=== PATIENT | female | born 2000 | race Caucasian/White ===

== ENCOUNTER 2022-12-11 13:30 | Outpatient (OUT) | payer BC, SELFPAY ==
--- NOTE | 2022-12-11 13:44 | MR_ITS ---
The [address] [address] Patient Name: TRUDY TUBBS MRN: [id number] date: 2000 Sex: F Assigned Patient Location: MRI Current Patient Location: MRI Accession/Order Number: [id number] Exam Date: 12/11/2022 13:55 Report Date: 12/12/2022 09:25 At the request of: ARVIND ZAVALETA Procedure: MR head/brain wo/w con EXAM: MR head/brain wo/w con CLINICAL INDICATION: Seizure R56.9 COMPARISON: None TECHNIQUE/PROTOCOL: Standard pre and postcontrast protocol brain MRI performed (Sagittal T1 with axial T1, T2, GRE, FLAIR, and diffusion-weighted imaging). CONTRAST: 13 mL of Dotarem. FINDINGS: No restricted diffusion, extra-axial fluid collection, hydrocephalus, midline shift, or other mass effect. Intracranial flow voids are maintained. Normal midline structures. No abnormal parenchymal, leptomeningeal, or dural enhancement. Incidental left cerebellar developmental venous anomaly. No discrete cortical malformation. No coronal T2 or FLAIR images were obtained. Normal marrow signal. No soft tissue abnormalities. Trace scattered paranasal sinus mucosal thickening. Mastoid air cells are well-aerated. IMPRESSION: 1. No acute intracranial process or abnormal enhancement. 2. Hippocampal formations cannot be well evaluated as no coronal T2 or FLAIR images were obtained. If there is persistent clinical concern for a structural anomaly, consider seizure protocol MRI. Electronically authenticated by: ATILIO MEJIAS Date: 12/12/2022 09:25
== END 2022-12-11 13:31 ==
PROVIDERS: PCP Family Medicine; Visit Provider Psychiatry & Neurology Neurology
DX: R56.9 Unspecified convulsions (principal)
CPT/HCPCS: 70553; A9575

== ENCOUNTER 2023-01-13 13:57 | Emergency (ER) | payer BC, SELFPAY ==
[2023-01-13 14:03] VITALS: BP 136/86; PULSE 88; RESP 22; TEMP 37.6; O2SAT 97; BMI 20.7
[2023-01-13 14:04] VITALS: BP 165/121; O2SAT 97
[2023-01-13 14:05] VITALS: BP 136/86; PULSE 100; PULSE 98; RESP 15; RESP 20; O2SAT 99
[2023-01-13 14:10] VITALS: PULSE 100
--- NOTE | 2023-01-13 14:49 | ED_ITS ---
HPI - Chest Pain General Chief Complaint: Chest Pain Stated Complaint: CHEST PAIN Time Seen by Provider: 01/13/23 14:49 Source: patient and family Mode of arrival: Wheelchair Limitations: no limitations History of Present Illness HPI narrative: Patient presents to emergency department complaining of chest pain, and palpitations. Patient states she had a cough which is nonproductive. She is also having Generalized weakness. Denies any fever, chills. She has a history of asthma but has not had the need to use her inhalers. She has not been taking any steroids. She states in the last month they have increased her thyroid medication from 200 ?g to 250 ?g she has been taking. She has a history of anxiety but this does not feel like an anxiety problem she had before. She denies any lower extremity edema, or cramping. She denies any shortness of breath. Denies any sore throat, runny nose. Denies any flank pain, hematuria, dysuria. She denies any nausea, vomiting, diarrhea, constipation or abdominal pain. Related Data Home Medications Medication Instructions Recorded Confirmed levothyroxine 200 mcg tablet 200 mcg PO DAILY 01/13/23 01/13/23 (Euthyrox) mometasone-formoterol HFA 50 mcg-5 2 inh inhalation QID 01/13/23 01/13/23 mcg/actuation aerosol inhaler (Dulera) Previous Rx's Medication Instructions Recorded cyclobenzaprine 5 mg tablet 5 mg PO TID PRN muscle spasm #10 01/13/23 tabs Allergies Allergy/AdvReac Type Severity Reaction Status Date / Time No Known Drug Allergies Allergy Verified 01/13/23 14:06 Review of Systems ROS Status of ROS 10 or more systems reviewed and unremarkable except as noted in history and below [facility] Social History Smoking status: Current some day smoker Exam Narrative Exam Narrative: Nurses notes and vital signs reviewed and patient is not hypoxic. General: Nontoxic, Well-appearing and in no apparent distress. Skin: Warm, dry, no pallor noted. No Rash Head: Normocephalic, atraumatic. Neck: Supple, non-tender. Eye: Pupils are equal, round and EOMI. No scleral icterus. Ears, Nose, Mouth, and Throat: TM clear, no posterior oropharynx erythema or nasal mucosal hypertrophy, uvula is mid-line Oral mucosa is moist Cardiovascular: Regular Rate and Rhythm without murmur, gallop or rub. Respiratory: No accessory muscle use or respiratory distress. Lungs are clear to auscultation, no wheezing, rales or rhonchi Chest Wall: no tenderness Back: No midline thoracic or lumbar vertebral tenderness. No CVA tenderness Musculoskeletal: normal ROM, no calf or popliteal tenderness, no lower extremity edema/swelling GI: Abdomen is soft, non-distended. Normal bowel sounds. No masses appreciated. No tenderness to palpation. No rebound, guarding, or rigidity noted. Neurological: A&O x4. No cranial nerve dysfunction observed. No truncal ataxia. Moves all extremities. Sensation intact. Psychiatric: Cooperative and interactive. anxious. Constitutional Vital Signs, click to edit/add: Last Vital Signs Temp 99.7 F H 01/13/23 14:03 Pulse 79 01/13/23 16:45 Resp 30 H 01/13/23 16:45 BP 137/78 H 01/13/23 16:45 Pulse Ox 97 01/13/23 16:45 O2 Del Method Room Air 01/13/23 14:03 Course Vital Signs Vital signs: Vital Signs Temperature 99.7 F H 01/13/23 14:03 Pulse Rate 88 01/13/23 14:03 Respiratory Rate 22 01/13/23 14:03 Blood Pressure 136/86 H 01/13/23 14:03 Pulse Oximetry 97 01/13/23 14:03 Oxygen Delivery Method Room Air 01/13/23 14:03 Temperature 99.7 F H 01/13/23 14:03 Pulse Rate 79 01/13/23 16:45 Respiratory Rate 30 H 01/13/23 16:45 Blood Pressure 137/78 H 01/13/23 16:45 Pulse Oximetry 97 01/13/23 16:45 Oxygen Delivery Method Room Air 01/13/23 14:03 MDM - Chest Pain MDM Narrative Medical decision making narrative: Patient was given IV fluids, Toradol, and Benadryl. She felt better state the pain was only about a 1 and was on the right side. Patient states she was little bit sleepy but had much improved. All results were discussed with patient. Lab studies other than the d-dimer are unremarkable. CT of the chest was negative for pulmonary embolism. Patient does not have any lower extremity edema, or cramping. Patient will be started on Flexeril. She is advised follow-up with primary care doctor. At this time the patient is without objective evidence of an acute process requiring hospitalization or inpatient management. The patient has remained hemodynamically stable. No additional indication for emergent studies at this time. I answered all questions. Discussed discharge instructions including standard anticipatory guidance and what should prompt a return to the emergency department, including if they get worse are not getting better or develops any new or concerning symptoms. I've given them specific time frame in which to follow-up, and who to follow-up with. The patient demonstrates understanding. Patient is nontoxic and stable for discharge with outpatient follow-up. This note was created with the assistance of a speech recognition program. Although the intention is to generate documents that actually reflects the content of the visit, no guarantees can be provided that every mistake has been identified and corrected by editing. Differential Diagnosis Differential diagnosis: Likely pneumothorax, st elevation myocardial infarction, costochondritis and chest pain Lab Data Attestation: I reviewed the patient's lab results. Labs: Lab Results 01/13/23 Range/Units 15:14 WBC 4.9 (4.0-11.0) 10^3/uL RBC 4.14 L (4.20-5.40) 10^6/uL Hgb 13.6 (12.0-16.0) g/dL Hct 38.1 (36.0-48.0) % MCV 92.0 (81.0-99.0) fL MCH 32.9 (26.7-34.0) pg MCHC 35.7 H (29.9-35.2) g/dL RDW 11.8 (11.0-15.0) % Plt Count 192 (150-450) 10^3/uL MPV 10.0 (9.5-13.5) fL Neut % (Auto) 50.5 (43.0-75.0) % Lymph % (Auto) 31.1 (20.5-60.0) % Josephine % (Auto) 11.1 (1.7-12.0) % Eos % (Auto) 5.9 (0.9-7.0) % Baso % (Auto) 1.0 (0.2-2.0) % Neut # (Auto) 2.5 (1.4-6.5) 10^3/uL Lymph # (Auto) 1.5 (1.2-3.8) 10^3/uL Josephine # (Auto) 0.5 (0.3-0.8) 10^3/uL Eos # (Auto) 0.3 (0.0-0.7) 10^3/uL Baso # (Auto) 0.1 (0.0-0.1) 10^3/uL Abs Immat Gran (auto) 0.02 (0.00-0.03) 10^3/uL Imm/Tot Granulo (auto) 0.4 (0.0-0.5) % PT 9.9 (9.0-11.6) sec INR 0.93 APTT 29.3 (22.3-36.2) sec D-Dimer 0.76 H* (<=0.59) mg/L FEU Sodium 137 (136-145) mmol/L Potassium 3.8 (3.5-5.1) mmol/L Chloride 103 (98-107) mmol/L Carbon Dioxide 27.6 (21.0-32.0) mmol/L Anion Gap 10.2 BUN 8.0 (7.0-18.0) mg/dL Creatinine 0.83 (0.55-1.02) mg/dL Est GFR ( Amer) >60 (>=60) Est GFR (Non-Af Amer) >60 (>=60) BUN/Creatinine Ratio 9.6 Glucose 102 (74-106) mg/dL Calcium 9.3 (8.5-10.1) mg/dL Total Bilirubin 0.4 (0.2-1.0) mg/dL AST 20 (15-37) U/L ALT 29 (14-59) U/L Alkaline Phosphatase 91 (46-116) U/L Total Protein 7.4 (6.4-8.2) g/dL Albumin 4.2 (3.4-5.0) g/dL Globulin 3.2 g/dL Albumin/Globulin Ratio 1.3 TSH 7.777 H (0.358-3.740) uIU/mL Thyroxine (T4) 6.80 (4.80-13.90) ug/dL Serum HCG, Qual Negative (NEGATIVE) ECG Data Attestation: I personally reviewed and interpreted this ECG as follows: Interpretation: Sinus rhythm 87 bpm. No acute ischemic changes. Normal axis Heart Score History: Slightly/Non-Suspicious ECG: Normal Age: <45 years Risk Factors: No Risk Factors Troponin: <Normal Limit Total Heart Score Recommendations & Risks:: 0 Discharge Plan Discharge Chief Complaint: Chest Pain Clinical Impression: Chest pain, Pleurisy Patient Disposition: Home, Self-Care Time of Disposition Decision: 17:49 Condition: Good Mode of Transportation: Private Vehicle Prescriptions / Home Meds: New cyclobenzaprine 5 mg tablet 5 mg PO TID PRN (Reason: muscle spasm) Qty: 10 0RF No Action levothyroxine [Euthyrox] 200 mcg tablet 200 mcg PO DAILY Dulera 50-5 mcg/actuation HFA aerosol inhaler 2 inh inhalation QID Instructions: Chest Pain (ED), Pleurisy (ED) Stand Alone Forms: Portal Instructions Referrals: RITIKA DOBSON [Primary Care Provider] - 1 week
--- NOTE | 2023-01-13 14:58 | ECG_ITS ---
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
--- NOTE | 2023-01-13 14:58 | XR_ITS ---
The [address] [address] Patient Name: TRUDY TUBBS MRN: [id number] date: 2000 Sex: F Assigned Patient Location: ER Current Patient Location: ER Accession/Order Number: [id number] Exam Date: 01/13/2023 15:32 Report Date: 01/13/2023 15:50 At the request of: ALDO ARANDA Procedure: XR chest 1V XR chest 1V CLINICAL HISTORY: Chest pain. COMPARISON: None Available. TECHNIQUE: Single AP portable upright view of the chest. FINDINGS: The lungs are hyperexpanded and clear. No pleural effusion or pneumothorax. Cardiomediastinal silhouette size is normal. No acute bony process. XR/XR chest 1V IMPRESSION: No acute cardiopulmonary process. Electronically authenticated by: RADHA MOULTON Date: 01/13/2023 15:50
[2023-01-13] MEDS: 0.9 % SODIUM CHLORIDE 1,000 ML 999 ML IV (15:15)
[2023-01-13 15:28] LABS: Basophils Absolute Auto 0.1 10^3/uL (0.0-0.1); Eosinophils Absolute Auto 0.3 10^3/uL (0.0-0.7); Eosinophils Percent Auto 5.9 % (0.9-7.0); Hematocrit 38.1 % (36.0-48.0); Hemoglobin 13.6 g/dL (12.0-16.0); Immature Granulocytes Abs Auto 0.02 10^3/uL (0.00-0.03); Immature Granulocytes Pct Auto 0.4 % (0.0-0.5); Lymphocytes Absolute Auto 1.5 10^3/uL (1.2-3.8); Lymphocytes Percent Auto 31.1 % (20.5-60.0); Mean Corpuscular HGB Conc 35.7 g/dL (29.9-35.2); Mean Corpuscular Hemoglobin 32.9 pg (26.7-34.0); Monocytes Absolute Auto 0.5 10^3/uL (0.3-0.8); Monocytes Percent Auto 11.1 % (1.7-12.0); Neutrophils Absolute Auto 2.5 10^3/uL (1.4-6.5); Neutrophils Percent Auto 50.5 % (43.0-75.0); Platelet Count 192 10^3/uL (150-450); Red Blood Count 4.14 10^6/uL (4.20-5.40); Red Cell Distribution Width 11.8 % (11.0-15.0); White Blood Count 4.9 10^3/uL (4.0-11.0)
[2023-01-13 15:44] LABS: Alanine Aminotransferase 29 U/L (14-59); Albumin Globulin Ratio 1.3; Albumin Level 4.2 g/dL (3.4-5.0); Alkaline Phosphatase 91 U/L (46-116); Anion Gap 10.2; Aspartate Amino Transferase 20 U/L (15-37); BUN Creatinine Ratio 9.6; Bilirubin Total 0.4 mg/dL (0.2-1.0); Calcium 9.3 mg/dL (8.5-10.1); Carbon Dioxide 27.6 mmol/L (21.0-32.0); Chloride 103 mmol/L (98-107); Estimated GFR (African America >60 (>=60); Estimated GFR (Non-African Ame >60 (>=60); Globulin 3.2 g/dL; Glucose 102 mg/dL (74-106); Potassium 3.8 mmol/L (3.5-5.1); Sodium 137 mmol/L (136-145); Total Protein 7.4 g/dL (6.4-8.2)
[2023-01-13 15:52] LABS: INR 0.93; Partial Thromboplastin Time 29.3 sec (22.3-36.2); Prothrombin Time 9.9 sec (9.0-11.6); Thyroid Stimulating Hormone 7.777 uIU/mL (0.358-3.740)
[2023-01-13 15:56] LABS: D Dimer 0.76 mg/L FEU (<=0.59)
--- NOTE | 2023-01-13 16:02 | CT_ITS ---
The [address] [address] Patient Name: TRUDY TUBBS MRN: [id number] date: 2000 Sex: F Assigned Patient Location: ED.MAIN Current Patient Location: ED.MAIN Accession/Order Number: [id number] Exam Date: 01/13/2023 16:30 Report Date: 01/13/2023 17:33 At the request of: ALDO ARANDA Procedure: CT angio chest EXAM: CTA chest. CLINICAL SYMPTOMS: Female, 22 years, cp. COMPARISONS: Chest radiograph, same date. TECHNIQUE: Helical CTA of the pulmonary arteries was performed following rapid injection of intravenous contrast with coronal and sagittal MIP images following the administration of 100 mL Omnipaque 350 IV contrast. Dose reduction techniques were achieved by using automated exposure control and/or adjustment of mA and/or KVP according to patient size and/or use of iterative reconstruction technique. CTA: There are no filling defects identified in the pulmonary arteries to suggest pulmonary embolism. There is no thoracic aortic dissection or aneurysm identified. The thoracic aorta is normal. CT CHEST: The lung parenchyma is normal. There is no pleural effusion. No mediastinal or hilar adenopathy. Heart size is normal. The visualized portion of the abdomen is unremarkable. CT/CT angio chest IMPRESSION: No evidence for pulmonary embolism or aortic dissection. The lungs are clear. Electronically authenticated by: RAQUEL VIVAS Date: 01/13/2023 17:33
[2023-01-13] MEDS: KETOROLAC TROMETHAMINE 30 MG/ML VIAL IVP (16:16)
[2023-01-13] MEDS: DIPHENHYDRAMINE HCL 50 MG/ML (1ML) VIAL 25 MG IV (16:16)
[2023-01-13 16:33] LABS: HCG Qualitative NEGATIVE (NEGATIVE)
[2023-01-13 16:45] VITALS: BP 137/78; PULSE 79; PULSE 90; RESP 22; RESP 30; O2SAT 97; O2SAT 98
== END 2023-01-13 18:15 | disposition home or self-care (01) ==
PROVIDERS: Emergency Provider Emergency Medicine; PCP Family Medicine
DX: R07.9 Chest pain, unspecified (principal); R09.1 Pleurisy; J45.909 Unspecified asthma, uncomplicated; F17.210 Nicotine dependence, cigarettes, uncomplicated; Z79.890 Hormone replacement therapy; Z79.899 Other long term (current) drug therapy
CPT/HCPCS: 36415; 71045; 71275; 80053; 84436; 84443; 84703; 85025; 85378; 85610; 85730; 93005; 96374; 96375; 99285; Q9967

== ENCOUNTER 2023-04-23 12:33 | Outpatient (OUT) | payer BC, SELFPAY ==
--- NOTE | 2023-04-23 13:20 | CA_ITS ---
Patient: TRUDY TUBBS Exam Date: 04/23/2023 : 2000 Gender:F Ordering : ESTEPHANIA BILLS M.D. Admission #: [id number] Family : Order #: [id number] CLICK HERE TO VIEW EXAM ECHOCARDIOGRAM REPORT PROCEDURE: CA ECHO DOPPLER COMPLETE INDICATIONS: SYNCOPE COMPARISON: None. DESCRIPTION: COMPLETE ECHOCARDIOGRAM Real-time transthoracic echocardiography with 2D, M-mode, spectral and color flow Doppler performed. QUALITY: Technical quality was good. LEFT VENTRICLE: Normal chamber size. Normal left ventricular wall thickness. Normal systolic function. LV EF: Normal left ventricular ejection fraction, (>55%). DIASTOLIC: Normal diastolic function. ATRIAL SEPTUM: LEFT ATRIUM: Normal chamber size. RIGHT ATRIUM: Normal chamber size. RIGHT VENTRICLE: Normal chamber size. Normal right ventricular systolic function. TRICUSPID VALVE: Normal mobility and thickness. No stenosis with no regurgitation. MITRAL VALVE: Normal mobility and thickness. No mitral valve prolapse. No evidence of mitral valve stenosis. There is no mitral annular calcification. No mitral regurgitation. AORTIC VALVE: Normal trileaflet appearance. No visible sclerosis. Normal leaflet mobility. No evidence of aortic valve stenosis. No aortic regurgitation. AORTIC ROOT: Normal diameter and appearance. PULMONIC VALVE: Normal thickness and mobility. No stenosis. Trivial regurgitation. PERICARDIUM: No evidence of pericardial effusion. IVC: Collapses with inspirations. PLEURA: CONCLUSION: 1. Normal study. Adult Echocardiography Procedure Report Left Ventricle LVEDD (3.7 - 5.6 cm): 3.30 cm LVESD (2.2 - 4.0 cm): 2.21 cm LVIVS thickness (0.6 - 1.2 cm): 0.59 cm LVPW thickness (0.5 - 1.0 cm): 0.69 cm e': 0.16 m/s E - e': 5.45 LVOT Max Gradient: 3.46 mm[Hg], 3.12 mm[Hg] LVOT Area (cm2): 0.91 m/s Peak Velocity (LVOT): 0.93 m/s, 0.88 m/s Mean Velocity (LVOT): 0.65 m/s LVOT Diameter 1.94 cm Left Atrium LA Volume Index (2D A2C): 17.17 ml/m2 Left Atrium Systolic Dimension: 2.27 cm Mitral Valve MV E to A Ratio: 1.72 Mitral Valve A-Wave Peak Velocity: 0.52 m/s Mitral Valve E-Wave Peak Velocity: 0.90 m/s Right Ventricle Aorta AO Root Diam: 2.78 cm Ascending Ao Diam: 2.20 cm Aortic Valve AoV Area (Peak [place]): 2.40 cm2, 2.47 cm2 Peak Velocity(Antegrade Flow): 1.12 m/s Peak Gradient(Antegrade Flow): 4.99 mm[Hg] Tricuspid Valve Pulmonic Valve Peak Velocity: 1.15 m/s Peak Gradient: 5.77 mm[Hg], 4.87 mm[Hg] Right Atrium Right Atrium Systolic Pressure: 12.83 ml, 12.83 ml Dictated by: Dimas Gant M.D. on 04/23/2023 at 17:15 Approved by: Dimas Gant M.D. on 04/23/2023 at 17:16
--- NOTE | 2023-04-23 13:20 | CA_ITS ---
The [facility] Test Date: 2023-05-06 Pat Name: TRUDY TUBBS Department: Room: - Gender: Female [employer]: : 2000 Requested By: [id number] Order Number: [id number] Reading MD: ASHISH CARRANZA Interpretive Statements Predominant rhythm is sinus with average rate of 93 bpm Tachycardia - max rate of 147 bpm Bradycardia - none Ventricular ectopy - < 1% total Impression: Predominant rhythm is sinus with average rate of 93 bpm Fastest rate of 147 bpm and slowest rate of 63 bpm < 1% ventricular ectopy Patient triggered events associated with sinus tachycardia w/ rates of 115 and 126 bpm Electronically Signed On 05-06-2023 20:36:16 EST by ASHISH CARRANZA
== END 2023-04-23 12:34 | disposition home or self-care (01) ==
LOC: CARD 12:34
PROVIDERS: PCP Family Medicine
DX: R10.11 Right upper quadrant pain (principal); R55 Syncope and collapse
CPT/HCPCS: 93270; 93306

== ENCOUNTER 2023-08-12 19:47 | Outpatient (OUT) | payer BC, SELFPAY ==
--- OUTSIDE RECORDS SUMMARY | 2023-08-12 19:51 | XMS_ITS | CCD ---
Author Name Unknown Address [address] [facility] [address] [place] [address] Organization [facility] Care Team Providers Care Heel Splitter Name Role Phone Jeffery Farr Unavailable Unavailabl e Lidia Zuniga Unavailable Unavailable Lidia Zuniga Unavailable Unavailable JOHANNA REED PA-C Attending Un available WixomJuliano campoa Jitendra Unavailable Unavailable JuanYumiko shin Unavailable Unavailable Jia DEMPSEY, Jeffery Unavailable Un available TUAN, RICHIE M Primary Care Physician Tuan, Richie Unavailable Tuan, DO Richie M. Primary Care Provider Tuan, DO Richie M. Attending Provider Tuan, DO Richie M. Primary Care Provider Tuan, DO Richie M. Attending Provider Tuan, Richie M. Attending Unavailable Tuan, Richie M. Admitting Unavailable Tuan, Richie M. Primary Care Unavailable Tuan, Richie M. Primary Care Unavailable Tuan, Richie M. Attending Unavailable Tuan, Richie M. Admitting Unavailable Tom Bales Unavailable TUAN, RICHIE M Admitting Unavailable TUAN, RICHIE M Attending Unavailable TUAN, RICHIE M Referring Unavailable TUAN, RICHIE M Admitting Unavailable TUAN, RICHIE M Attending Unavailable TUAN, RICHIE M Admitting Unavailable TUAN, IRCHIE M Attending Unavailable NONE, XXXX Referring Unavailable Narinder Marrero Attending Unavaila catherine JAEGER, MAINOR Ham Referring Unavailabl Narinder Sierra Admitting Unavaila Narinder Green Attending [facility] Allergies Allergy Classification Reported Allergen(s) Allergy Type Date of Onset Reaction(s) Facility Dairy (not specified as lactose intolerance) (1 source) cow milk Food Allergy ZY-Tzxmsozvct-V [place] [address] Work Phone: Unclassified (1 source) Animal dander - Cats Allergy to substance (finding) OZ-Huxrkzxoyy-Q [place] [address] Work Phone: Unclassified (1 source) Animal dander - Dogs Allergy to substance (finding) KD-Hewluqcizq-I [place] [address] Work Phone: (2 sources) No Known Medication Allergies; Translations: [No Known Medication Allergies] Propensity to adverse reactions to drug (disorder) [facility] (7 sources) Bee/Wasp/Ant venom; Translations: [Bee Stings] Drug allergy Hives [facility] (7 sources) Cat; Translations: [Cats] Drug allergy Sneezing (finding) [facility] (7 sources) Citric Acid; Translations: [citric acid] Drug Allergy Angioedema [facility] (7 sources) Dairy; Translations: [Dairy] Drug allergy Upset stomach (finding) [facility] (20 sources) Citric Acid-D Gluconic Acid Drug allergy Throat [facility] [place] Other Medications Current Medications Medication Drug Class(es) Dates Sig (Normalized) Sig (Original) acetaminophen 325 mg oral tablet (20 sources) take 1 tablet by mouth every four hours Tylenol 325 MG 1 tablet as needed Orally every 4 hrs Active albuterol 0.21 mg/ml inhalation solution (20 sources) beta2-Adrenergic Agonist Start: 09-23-2018 albuterol 0.63 mg/3 mL (0.021%) inhalation solution INHALE 1 AMPULE (3 ML) VIA NEBULIZER EVERY FOUR HOURS NEEDED, Shortness of breath or wheezing Start Date: 09/23/18 Status: Ordered Start: 08-03-2013 Albuterol Sulf ate (2.5 MG/3ML) 0.083% Inhalation Nebulization Solution Quantity: 75 Refills: 0 Start : 03-Aug-2013 Active take 3 mL by inhalat ion every four hours as needed Albuterol Sulfate 0.63 MG/3ML 3 ml as needed Inhalation every 4 hrs for 30 days Active take 3 mL by inhalat ion every four hours as needed Albuterol Sulfate 0.63 MG/3ML 3 ml as needed Inhalation every 4 hrs for 30 days Active take 2 puff(s) by in halation every four hours as needed ProAir HFA 108 (90 Base) MCG/ACT 2 puffs as needed Inhalation every 4 hrs for 30 days Active cetirizine hydrochloride 10 mg oral tablet (20 sources) Histamine-1 Receptor Antagonist take 1 tablet by mouth every twenty-four hours ZyrTEC Allergy 10 MG 1 tablet Orally Once a day Active cholecalciferol 1.25 mg oral capsule (13 sources) Vitamin D take 1 capsule by mouth every week Vitamin D3 1.25 MG (17114 UT) 1 capsule Orally Once a week for 30 days Active Dulera 100 mcg-5 mcg/inh inhalation aerosol (5 sources) Start: 10-13-19 take 2 puff(s) by inhalation twice daily Dulera 100 mcg-5 mcg/inh inhalation aerosol 2 puff(s), Inhalation, BID, Asthma Start Date: 10/12/20 Status: Ordered 120 actuat formoterol fumarate 0.005 mg/actuat / mometasone furoate 0.1 mg/actuat metered dose inhaler (20 sources) Corticosteroid, beta2-Adrenergic Agonist Start: 08-17-19 take 2 puff(s) by inhalation twice daily Dulera 100 mcg-5 mcg/inh inhalation aerosol 2 puff(s), Inhalation, BID, Asthma Start Date: 10/12/20 Status: Ordered take 2 puff(s) by mouth twice da keren Dulera 100-5 MCG/ACT TAKE 2 PUFFS BY MOUTH TWICE A DAY for 30 Active levothyroxine sodium 0.05 mg oral tablet (20 sources) l-Thyroxine Start: 05-30-2022 take 1 tablet by mouth once daily in the morning Levothyroxine Sodium 50 MCG 1 tablet in the morning on an empty stomach Orally Once a day in addition to 200mcg for a total of 250mcg daily for 30 days May, Active Start: 05-30-2022 take 1 tablet by once daily in the morning Levothyroxine Sodium 25 MCG 1 tablet in the morning on an empty stomach Orally Once a day in addition to 200mcg for a total of 225mcg daily for 30 day(s) May, Active Start: 09-02-2019 take 175 ug by mouth once sudhakar y Levothyroxine Active 175 MCG PO Daily September 02, 2019 12:00am Start: 10-03-2018 take 200 ug by mouth once sudhakar y Synthroid 200 mcg, Oral, Daily, Refills(s) 0, Thyroid Start Date: 10/03/18 Status: Ordered Start: 08-01-2013 Levothyroxine Sodium 125 MCG Oral Tablet Quantity: 15 Refills: 0 Start : 01-Aug-2013 Active take 1 tablet by ines th every twenty-four hours Levothyroxine Sodium 200 MCG 1 tablet Orally Once a day for 90 days Active take 1 tablet by ines th once daily Levothyroxine Sodium 75 MCG 1 tablet Orally once a day, in addition to 200mcg for a total of 275mcg daily for 90 days Active take 1 tablet by ines th every twenty-four hours Levothyroxine Sodium 200 MCG 1 tablet Orally Once a day for 90 days Active loratadine 10 mg oral tablet (2 sources) Start: 09-07-2019 take 1 tablet by mouth once daily Loratadine (Claritin) 10 mg Tablet Active 10 MG PO Daily September 06, 2019 11:00pm melatonin 5 mg oral tablet (8 sources) Start: 10-03-2020 take 1 tablet by mouth once daily at bedtime as needed melatonin 5 mg oral tablet 5 mg = 1 tab(s), Oral, Once a day (at bedtime), PRN for insomnia, # 60 tab(s), Refills(s) 0 Start Date: 10/03/20 Status: Ordered Start: 09-07-2019 take 10 mg by mouth at bedtime Melatonin Active 10 MG PO Bedtime September 06, 2019 11:00pm montelukast 10 mg oral tablet (8 sources) Leukotriene Receptor Antagonist Start: 03-13-2013 take 1 tablet by mouth once daily Montelukast (Singulair) 10 mg Tablet Active 10 MG PO Daily March 21, 2021 11:00pm Multivitamins with Folic Acid 0.8 mg oral capsule (6 sources) Start: 10-03-2020 Multivitamins with Folic Acid 0.8 mg oral capsule Refill(s) 0 Start Date: 10/03/20 Status: Ordered ProAir HFA 108 (90 Base) MCG/ACT (19 sources) take 2 puff(s) by inhalation every four hours as needed ProAir HFA 108 (90 Base) MCG/ACT 2 puffs as needed Inhalation every 4 hrs for 30 days Active triamcinolone acetonide 1 mg/ml topical cream (18 sources) Corticosteroid Start: 04-29-2023 Triamcinolone Acetonide 0.1 % 1 application Externally Twice a day for 10 days Mar, Active Start: 04-29-2023 Triamcinolone Acetonide 0.1 % 1 application Externally Twice a day for 10 days Mar, Active Start: 04-29-2023 Kenalog-40 Mar, 60 mg Ventolin HFA 90 mcg/inh inhalation aerosol with adapter (6 sources) Start: 09-23-2018 take 2 puff(s) by mouth every four hours as needed Ventolin HFA 90 mcg/inh inhalation aerosol with adapter INHALE 2 PUFFS ORALLY EVERY FOUR HOURS NEEDED Start Date: 09/23/18 Status: Ordered Zofran ODT 4 mg Tab-Dis (12 sources) Start: 12-02-2020 take 1 tablet by mouth three times daily Zofran ODT 4 mg Tab-Dis 4 mg = 1 tab(s), Oral, TID, # 15 tab(s), Refills(s) 0, Pharmacy: [place] [id number] [facility], 172.2, cm, 12/02/20 7:41:00 EDT, Height/Length Dosing, 58.8, kg, 12/02/20 7:41:00 EDT, Weight Dosing Start Date: 12/02/20 Status: Ordered Start: 11-02-2020 End: 11-05-2020 take 1 tablet by mouth three times daily as needed for nausea Zofran ODT 4 mg Tab-Dis 4 mg = 1 tab(s), Oral, TID, PRN Nausea, PRN N/V, # 8 tab(s), Refills(s) 0, Pharmacy: [place] [id number] [facility], 173, cm, 11/02/20 16:02:00 EDT, Height/Length Dosing, 58, kg, 11/02/20 16:02:00 EDT, Weight Dosing Start Date: 11/02/20 Stop Date: 11/05/20 Status: Ordered Completed/Discontinued Medications Medication Drug Class(es) Dates Sig (Normalized) Sig (Original) acetaminophen 325 mg / oxyCODONE hydrochloride 5 mg oral tablet (2 sources) Opioid Agonist Start: 03-24-2021 End: 04-15-2021 take 1 tablet by mouth every six hours Oxycodone-Acetamin ophen (Percocet) 5-325 mg tablet Discontinued 1 TAB PO Q6H 8 March 24, 2021 April 15, 2021 5:28pm amoxicillin 875 mg oral tablet (2 sources) Penicillin-class Antibacterial Start: 09-07-2019 End: 03-22-2021 take 1 tablet by mouth twice daily Amoxicillin Discontinued 1 TAB PO Twice daily September 06, 2019 11:00pm March 22, 2021 5:08am amoxicillin 875 mg / clavulanate 125 mg oral tablet (2 sources) Penicillin-class Antibacterial Start: 03-24-2021 End: 04-15-2021 take 1 tablet by mouth every twelve hours Amoxicillin-Pot Clavulanate (Augmentin) 875-125 mg tablet Discontinued 1 TAB PO Q12H March 23, 2021 11:00pm April 15, 2021 5:28pm cephalexin 500 mg oral capsule (2 sources) Cephalosporin Antibacterial Start: 05-06-2019 End: 09-02-2019 take 1 capsule by mouth twice daily Cephalexin (Keflex) 500 mg capsule Discontinued 500 MG PO Twice daily 10 May 06, 2019 12:00am September 02, 2019 5:23am 60 actuat fluticasone propionate 0.25 mg/actuat / salmeterol 0.05 mg/actuat dry powder inhaler (1 source) Corticosteroid, beta2-Adrenergic Agonist Start: 03-31-2013 Advair Diskus 250-50 MCG/DOSE Inhalation Aerosol Powder Breath Activated Quantity: 60 Refills: 0 Start : 31-Mar-2013 Active ibuprofen 600 mg oral tablet (2 sources) Nonsteroidal Anti-inflammatory Drug Start: 09-02-2019 End: 03-22-2021 Ibuprofen Discontinued 600 MG PO Every 6 hours September 02, 2019 12:00am March 22, 2021 5:09am do not exceed 4 doses in a 24 hour period metroNIDAZOLE 500 mg oral tablet (2 sources) Nitroimidazole Antimicrobial Start: 03-24-2021 End: 04-15-2021 take 1 tablet by mouth every eight hours Metronidazole (Flagyl) 500 mg tablet Discontinued 500 MG PO Q8H 30 March 23, 2021 11:00pm April 15, 2021 5:28pm ondansetron 4 mg disintegrating oral tablet (2 sources) Serotonin-3 Receptor Antagonist Start: 03-24-2021 End: 04-15-2021 take 4 mg by mouth four times daily Ondansetron Discontinued 4 MG PO Four times daily March 23, 2021 11:00pm April 15, 2021 5:28pm penicillin v potassium 500 mg oral tablet (2 sources) Start: 09-07-2019 End: 03-22-2021 take 2 tablets by mouth twice daily Penicillin V Potassium Discontinued 2 TAB PO Twice daily September 06, 2019 11:00pm March 22, 2021 5:08am Problems Active Problems Problem Classification Problem Date Documented Date Episodic/Chronic Abdominal pain (2 sources) Abdominal pain; Translations: [Unspecified abdominal pain] 03-23-2021 Episodic Allergic reactions (2 sources) Hypersensitivity reaction caused by food; Translations: [Allergy to milk products] Episodic Anxiety disorders (19 sources) Anxiety; Translations: [Anxiety disorder, unspecified] Chronic Asthma (20 sources) Asthma; Translations: [Asthma, unspecified type, unspecified] 10-03-2020 Chronic Conditions associated with dizziness or vertigo (2 sources) Lightheadedness; Translations: [Dizziness and giddiness] 05-06-2019 Episodic Digestive congenital anomalies (20 sources) Jie's disease; 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 Epilepsy; convulsions (17 sources) Seizure; Translations: [Unspecified convulsions] Episodic Esophageal disorders (20 sources) Gastroesophageal reflux disease without esophagitis; Translations: [Gastro-esophageal reflux disease without esophagitis] Chronic Headache; including migraine (20 sources) Migraine; Translations: [Migraine with aura] 10-03-2020 Chronic Malaise and fatigue (17 sources) Fatigue; Translations: [Chronic fatigue, unspecified] Chronic Nonmalignant breast conditions (1 source) Unspecified lump in left breast, subareolar Episodic Nutritional deficiencies (17 sources) Vitamin D deficiency; Translations: [Vitamin D deficiency, unspecified] Chronic Other circulatory disease (1 source) Raynaud's phenomenon; Translations: [Raynaud's syndrome] Chronic Other complications of (6 sources) Hypothyroidism in 10-03-2020 Episodic Other female genital disorders (20 sources) Vaginal bleeding; Translations: [Abnormal uterine and vaginal bleeding, unspecified] Chronic Other hematologic conditions (1 source) H/O: blood disorder; Translations: [Personal history of unspecified disease] Episodic Other injuries and conditions due to external causes (1 source) Injury of wrist; Translations: [Elbow, forearm, and wrist injury] Episodic Other and delivery including normal (6 sources) Normal 10-03-2020 Episodic Other skin disorders (1 source) Rash and other nonspecific skin eruption Episodic Other upper respiratory infections (4 sources) Streptococcal sore throat; Translations: [Streptococcal pharyngitis] 09-07-2019 Episodic Residual codes; unclassified (2 sources) History of clinical finding in subject; Translations: [Personal history of other specified diseases] Episodic Residual codes; unclassified (6 sources) Down's child in family 10-03-2020 Episodic Residual codes; unclassified (6 sources) Family history of cystic fibrosis 10-03-2020 Episodic Residual codes; unclassified (20 sources) Difficulty sleeping ; Translations: [Sleep disorder, unspecified] Episodic Residual codes; unclassified (2 sources) Family history of Raynaud phenomenon; Translations: [Family history of ischemic heart disease and other diseases of the circulatory system] 07-08-2017 Episodic Screening and history of mental health and substance abuse codes (2 sources) H/O: psychiatric disorder; Translations: [Personal history of other mental disorders] Episodic Sprains and strains (2 sources) Shoulder strain; Translations: [Strain of unspecified muscle, fascia and tendon at shoulder and upper arm level, unspecified arm, initial encounter] 12-28-2019 Episodic Syncope (3 sources) Syncope; Translations: [Syncope and collapse] 04-15-2021 Episodic Thyroid disorders (20 sources) Hypothyroidism; Translations: [Unspecified acquired hypothyroidism] Onset: 05-30-2022 09-23-2018 Chronic Unclassified (1 source) Pain in right shoulder; Translations: [Pain in right shoulder] Onset: 12-25-2021 Urinary tract infections (2 sources) Urinary tract infectious disease; Translations: [Urinary tract infection, site not specified] 05-06-2019 Episodic Past or Other Problems Problem Classification Problem Date Documented Date Episodic/Chronic Immunizations and screening for infectious disease (2 sources) Anti-nuclear factor positive; Translations: [Other and unspecified nonspecific immunological findings] Onset: 07-05-2021 Resolved: 07-05-2021 Episodic Other non-traumatic joint disorders (1 source) Pain in left wrist Onset: 05-03-2021 Resolved: 05-03-2021 Episodic Other non-traumatic joint disorders (1 source) Pain in right shoulder Onset: 10-31-2021 Resolved: 10-31-2021 Episodic Other non-traumatic joint disorders (1 source) Pain in left shoulder Onset: 10-31-2021 Resolved: 10-31-2021 Episodic Unclassified (6 sources) Onset: 07-16-2020 Resolved: 10-03-2020 10-10-2020 Viral infection (1 source) Disease caused by 2019-nCoV; Translations: [COVID-19] NEGATED: Highlighted row has not occurred!Residual codes; unclassified (1 source) Disease Episodic Results Test Name Value Interpretation Reference Range Facility T3 Freeon 06-01-2023 Free T3 [Mass/Vol] 3.5 pg/mL Invalid Interpretation Code 2.0-4.4 [facility] Comment on above: Result Comment: Perf ormed at: [facility] [address] [id number] PhD Erica Banks Performed By: #### 2 [id number] ####[address] [address] CHEMISTRYOrdered By: SYSTEM SYSTEM on 05-31-2023 Free T4 [Mass/Vol] 0.83 ng/dL Normal 0.58 - 1. 64 ng/dL [facility] Remisol TSH Qn 6.13 m[IU]/L High 0.34 - 5.60 mcIU/mL [facility] Remisol Consent for Treatmenton Consent for Treatment [id number] B3#1.00TIFF Normal [facility] Free T4on 05-31-2023 Free T4 [Mass/Vol] 0.83 ng/dL Normal 0.58-1.64 [facility] Comment on above: Performed By: #### 2 [id number] ####[facility] [id number] [place] [address] Physician Orderon 05-31-2023 Physician Order [id number]#1.00TIFF Normal [facility] TSHon 05-31-2023 TSH Qn 6.13 m[IU]/L High 0.34-5.60 [facility] Comment on above: Performed By: #### 2 [id number] ####[facility] [address] [place] [address] Heart and Vascular Office/Cl inic Noteon 05-27-2023 Heart and Vascular Office/Clinic Note Chief Complaint here for test results History of Present Illness Trudy Devine is a 22-year-old female who presents today for a follow-up evaluation of sinus tachycardia. Trudy Devine explains that she is doing well. Her most recent echocardiogram results were within normal limits. The event monitor indicates sinus tachycardia. The patient has expressed a preference not to take additional medication at this time. The patient reports having symptoms of seasonal allergies. Review of Systems Constitutional: no fever, no sweats, no weakness Skin: no rash, no lesions, no bruising/petechiae ENMT: no sore throat, no congestion, no hoarseness Respiratory: no shortness of breath, no cough, no orthopnea, no wheezing Cardiovascular: no chest pain, no palpitations, no edema Gastrointestinal: no nausea, no vomiting, no diarrhea, no GI bleeding Genitourinary: no anuria/oliguria no hematuria Musculoskeletal: no back pain, no trauma Neurologic: no headache, no dizziness, no numbness, no weakness Psychiatric: no sleeping problems, no irritability, no anxiety/depression. Heme/Lymph: no bleeding tendency, no bruising tendency Allergy/Immunologic : no recurrent infections, no impaired immunity Additional ROS info: Except as noted in the above Review of Systems and in the History of Present Illness all other systems have been reviewed and are negative or noncontributory Physical Exam Vitals & Measurements HR: 91(Peripheral) BP: 112/72 SpO2: 100% HT: 68 in HT: 172 cm WT: 66 kg WT: 145.2 lb BMI: 22.31 General: alert, no acute distress Skin: warm, dry intact Head: atraumatic, normocephalic Neck: trachea midline, no JVD, no bruit Eye: normal conjunctiva, sclera clear ENMT: oral mucosa moist Cardiovascular: regular rate and rhythm, no murmur, normal peripheral perfusion Respiratory: lungs CTA, respirations non labored Chest wall: no deformity. Gastrointestinal: soft, non-distended, no tenderness, no guarding. Back: no tenderness, normal ROM, normal alignment. Extremities: no edema, no deformity, no trauma Neurological: oriented x 4, LOC appropriate for age, sensation equal & normal bilaterally, speech normal Psychiatric: cooperative, affect appropriate for age, normal judgement, normal psychiatric thoughts. Assessment/Plan 1. Sinus Tachycardia Trudy Devine is a 22-year-old female with sinus tachycardia, possibly inappropriate sinus tachycardia, but might be related to thyroid issues. We discussed possible diltiazem. She prefers no medication at this time, which I think is quite appropriate. Follow up in 6 months. ATTESTATION: Portions of this record may have been created with voice recognition artificial intelligence software, specifically [employer], fintonic and or [employer]. Substitutions may have occurred due to the inherent limitations of voice recognition and artificial intelligence software. Documentation services were performed after patient or guardian consented to allow [employer] to record this visit. GRAHAM strategic debriefing specialist and provider reviewed before signing. GRAHAM: Ashley Rehman Problem List/Past Medical History Ongoing Asthma Family history of cystic fibrosis Family history of Down syndrome Hypothyroidism in Migraines Supervision of normal first in first trimester Historical Hypothyroid Procedure/Surgical History Colonoscopy, EGD (esophagogastroduod enoscopy) gastric outlet reduction, Myringotomy and drainage of middle ear, T and A (tonsillectomy and adenoidectomy) postoperative education. Medications albuterol 0.63 mg/3 mL (0.021%) inhalation solution Dulera 100 mcg-5 mcg/inh inhalation aerosol, 2 puff(s), Inhalation, BID melatonin 5 mg oral tablet, 5 mg= 1 tab(s), Oral, Once a day (at bedtime), PRN Multivitamins with Folic Acid 0.8 mg oral capsule Synthroid, 200 mcg, Oral, Daily Ventolin HFA 90 mcg/inh inhalation aerosol with adapter Zofran ODT 4 mg Tab-Dis, 4 mg= 1 tab(s), Oral, TID, PRN Zofran ODT 4 mg Tab-Dis, 4 mg= 1 tab(s), Oral, TID Allergies Bee Stings (Hives) Cats (Sneezing) Dairy (Upset stomach) citric acid (Angioedema) Social History Alcohol - Denies Alcohol Use, 09/23/2018 Current, 09/24/2020 Employment/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 Never Smokeless Tobacco Use:. Household tobacco concerns: Yes., 03/28/2023 Family History Bipolar: Sister. Schizophrenia: Sister. [facility] Comment on above: Result Comment: Elec tronically Signed By: Elida DEMPSEY, Narinder Champion\.br\Date and Time Signed: 05/26/23 22:29 EST\.br\Electronically Co-Signed By: Ashley Rehman\.br\Date and Time Co-Signed: 05/16/23 14:50 EST Consent for Treatmenton 05-02 Consent for Treatment [id number] AB#1.00TIFF Normal [facility] US Breast Unilateral Lt Comp leteon 05-21-2023 US Breast Unilateral Lt Complete Exam Date/Time: 05/21/2023 12:40 EST Reason for Exam: N63.42 Report IMPRESSION: BIOPSY CATEGORY 1: NEGATIVE. CLINICAL HISTORY: N63.42. COMMENT: An ultrasound was obtained at all clock face positions and in the central/ retroareolar region of the left breast. The ultrasound examination of the left breast is unremarkable. No mass, no cyst, nor suspicious lesion is noted. Ordering Provider: RICHIE DICKERSON FINAL REPORT Dictated: 05/21/2023 2:19 pm Brock Francis M.D. Signed (Electronic Signature): 05/21/2023 2:19 pm Signed by: Brock Francis M.D. Transcribed by: ROSARIO Technologist: MARLENE Anaya [facility] Physician Orderon 05-17-2023 Physician Order [id number] Normal [facility] Heart and Vascular Office/Cl inic Noteon 05-16-2023 Heart and Vascular Office/Clinic Note Chief Complaint here to establish care History of Present Illness Trudy Devine is a 22-year-old female patient who presents today for an evaluation of dizziness and syncope. She is accompanied by her mother. The patient has been seeing a neurologist due to severe episodes of dizziness and syncope. Her dizziness has not affecting her a lot recently for almost a year. She does gets dizziness for at least once or twice a week. Her syncope episodes does not occur for a month, but around 3 to 4 times when it occurs. When she has an episode, she gets extreme dizzy, blurry vision, and palpitation. She wake up on the ground, when she had episode. She feels confused and dazed when it happened. She denies tongue biting or having any bowel or urinary incontinence. On 08/2022 or 08/2022, her boyfriend was about to pick her up and he found her convulsing on the floor. She does have occasional chest pain and she believes it was normal because she is an asthmatic. She takes a rest and drinks some water when she feels like she is about to pass out. She underwent EEG and MRI done at [place]. She has thyroid issues. She has a family history of heart conditions on her mother's side. Her maternal father, who had congestive heart failure, quadruple bypass, and had 27 stents placed. She denies any heart issues on her paternal side. Her maternal grandfather had a pacemaker at old age. Her maternal uncle had a blockage in his 20s. Review of Systems Constitutional: no fever, no sweats, no weakness Skin: no rash, no lesions, no bruising/petechiae ENMT: no sore throat, no congestion, no hoarseness Respiratory: no shortness of breath, no cough, no orthopnea, no wheezing Cardiovascular: positive for chest pain, no palpitations, no edema Gastrointestinal: no nausea, no vomiting, no diarrhea, no GI bleeding Genitourinary: no anuria/oliguria no hematuria Musculoskeletal: no back pain, no trauma Neurologic: no headache, positive for dizziness, no numbness, no weakness Psychiatric: no sleeping problems, no irritability, no anxiety/depression. Heme/Lymph: no bleeding tendency, no bruising tendency Allergy/Immunologic : no recurrent infections, no impaired immunity Additional ROS info: Except as noted in the above Review of Systems and in the History of Present Illness all other systems have been reviewed and are negative or noncontributory Physical Exam Vitals & Measurements HR: 102(Peripheral) BP: 108/66 SpO2: 98% HT: 68 in HT: 172 cm General: alert, no acute distress Skin: warm, dry intact Head: atraumatic, normocephalic Neck: trachea midline, no JVD, no bruit Eye: normal conjunctiva, sclera clear ENMT: oral mucosa moist Cardiovascular: regular rate and rhythm, no murmur, normal peripheral perfusion Respiratory: lungs CTA, respirations non labored Chest wall: no deformity. Gastrointestinal: soft, non-distended, no tenderness, no guarding. Back: no tenderness, normal ROM, normal alignment. Extremities: no edema, no deformity, no trauma Neurological: oriented x 4, LOC appropriate for age, sensation equal & normal bilaterally, speech normal Psychiatric: cooperative, affect appropriate for age, normal judgement, normal psychiatric thoughts. Procedure EKG is normal. Assessment/Plan Syncope (R55: Syncope and collapse) Trudy Devine is a 22-year-old female who presents today for evaluation of dizziness. I will order an echocardiogram to rule out congenital or weak heart. I will also order an event monitor for 14 days to see if she is having any rhythm issues. I advised the patient to drink plenty of fluids, salt in her diet, and compression socks. I advised the patient to avoid alcohol, and caffeine. Follow up in 2 months. Portions of this record may have been created with voice recognition artificial intelligence software, specifically [employer], fintonic and or [employer]. Substitutions may have occurred with voice recognition and artificial intelligence software. ATTESTATION: Documentation services were performed after patient or guardian consented to allow [employer] to record this visit. GRAHAM strategic debriefing specialist and provider reviewed before signing. GRAHAM: JessieMeghan Waters/Pasted by: Justa Gallardo. Follow-up No qualifying data available Problem List/Past Medical History Ongoing Asthma Family history of cystic fibrosis Family history of Down syndrome Hypothyroidism in Migraines Supervision of normal first in first trimester Historical Hypothyroid Procedure/Surgical History Colonoscopy, EGD (esophagogastroduod enoscopy) gastric outlet reduction, Myringotomy and drainage of middle ear, T and A (tonsillectomy and adenoidectomy) postoperative education. Medications albuterol 0.63 mg/3 mL (0.021%) inhalation solution Dulera 100 mcg-5 mcg/inh inhalation aerosol, 2 puff(s), Inhalation, BID melatonin 5 mg oral tablet (more content not included)... [facility] Comment on above: Result Comment: Elec tronically Signed By: Elida DEMPSEY, Narinder Champion\.br\Date and Time Signed: 05/16/23 13:46 EST\.br\Electronically Co-Signed By: Justa Gallardo.br\Date and Time Co-Signed: 03/28/23 17:31 EDT Echocardiographyon 3 Echocardiography [id number] 0#1.00TIFF [facility] Outside Cardiovascularon Outside Cardiovascular [id number] 2#1.00TIFF [facility] Physician Orderon 05-01-2023 Physician Order [id number] 9C#1.00TIFF [facility] Consent for Treatmenton 03-02 Consent for Treatment [id number] D0#1.00CD:127 [facility] Insurance Correspondenceon 0 03-28-2023 Insurance Correspondence [id number]#1.00CD:127 [facility] Physician Orderon 03-28-2023 Physician Order [id number] 47#1.00CD:127 Normal [facility] Referrals Officeon 3 Referrals Office [id number] 384#1.00CD:127 Normal [facility] T3 Freeon 11-28-2022 Free T3 [Mass/Vol] 4.1 pg/mL Invalid Interpretation Code 2.0-4.4 [facility] Comment on above: Result Comment: Perf ormed at: [facility] [address] [id number] PhD Erica Banks Performed By: #### 5 [id number], 8342785, 3876265, 0556148, 4023062, 28768358, 0488174, 6725550, 8778129 ####[facility] [address] [place] [address] Auto Diffon 11-27-2022 Basophils/100 WBC (Bld) 1.1 % Normal 0.0-2.0 [facility] Comment on above: Order Comment: Order Added by Discern Expert. Performed By: #### 5 [id number], 1178617, 0973235, 8223786, 8723757, 95870746, 2348701, 1033315, 4410144 ####[facility] [address] [place] [address] Basophils/Leukocytes Auto (Bld) [Pure # fraction] 0.1 E9/L Normal 0.0-0.2 [facility] Comment on above: Order Comment: Order Added by Discern Expert. Performed By: #### 5 [id number], 6566284, 7704847, 4668772, 3099346, 24665764, 8895154, 0965468, 2978571 ####[facility] [address] [place] [address] Eosinophils/100 WBC (Bld) 11.7 % High 0.0-8.0 [facility] Comment on above: Order Comment: Order Added by Discern Expert. Performed By: #### 5 28585811, 5220876, 6165816, 3017680, 7881342, 57486935, 0089565, 9367296, 9414100 ####[facility] [address] [place] [address] Eosinophils/Leukocytes Auto (Bld) [Pure # fraction] 0.8 E9/L High 0.0-0.5 [facility] Comment on above: Order Comment: Order Added by Discern Expert. Performed By: #### 5 26534366, 2987223, 3205999, 8054768, 6187639, 93073283, 8672057, 2198990, 5319355 ####[address] [place] [address] Lymphocytes/100 WBC (Bld) 18.6 % Normal 14.0-50.0 [facility] Comment on above: Order Comment: Order Added by Discern Expert. Performed By: #### 5 27760534, 9786409, 4424554, 5545912, 1477767, 00786930, 4031073, 7794154, 3283861 ####[address] [place] [address] Lymphocytes/Leukocytes Auto (Bld) [Pure # fraction] 1.3 E9/L Normal 1.0-4.0 [facility] Comment on above: Order Comment: Order Added by Discern Expert. Performed By: #### 5 22402178, 3608185, 5754294, 8293773, 8640571, 08264764, 6172324, 8721257, 2655785 ####[address] [place] [address] Monocytes/100 WBC (Bld) 5.6 % Normal 4.0-14.0 [facility] Comment on above: Order Comment: Order Added by Discern Expert. Performed By: #### 5 86441755, 4215392, 8871009, 7699552, 6130954, 06904336, 0872516, 2228600, 0648304 ####[address] [place] [address] Monocytes/Leukocytes Auto (Bld) [Pure # fraction] 0.4 E9/L Normal 0.2-1.0 [facility] Comment on above: Order Comment: Order Added by Discern Expert. Performed By: #### 5 30823596, 1021804, 3360764, 1201558, 7681222, 15707371, 9142343, 7311001, 3589694 ####[facility] [address] [place] [address] Neutrophils/100 WBC (Bld) 63.0 % Normal 36.0-75.0 [facility] Comment on above: Order Comment: Order Added by Discern Expert. Performed By: #### 5 70872200, 5270677, 3318735, 1645415, 6663696, 60691956, 7548857, 6213019, 2217757 ####[facility] [address] [place] [address] Neutrophils/Leukocytes Auto (Bld) [Pure # fraction] 4.4 E9/L Normal 2.0-7.5 [facility] Comment on above: Order Comment: Order Added by Discern Expert. Performed By: #### 5 86179175, 2006327, 1635960, 1581106, 9525784, 28587304, 6863724, 9455889, 1799944 ####[facility] [address] [place] [address] CBC w/ Auto Diffon 3 Erythrocyte distribution width (RBC) [Ratio] 12.4 % Normal 10.9-14.2 [facility] Comment on above: Performed By: #### 5 78219880, 1991939, 0545759, 1174947, 3828537, 48195852, 7173296, 2894704, 4936081 ####[facility] [address] [place] [address] Hematocrit (Bld) [Volume fraction] 32.8 % Low 34.0-46.0 [facility] Comment on above: Performed By: #### 5 11848635, 6478065, 9536435, 1029832, 1664200, 80856037, 8457123, 7929790, 3536233 ####[facility] [address] [place] [address] Hemoglobin (Bld) [Mass/Vol] 11.8 g/dL Low 12.0-16.0 [facility] Comment on above: Performed By: #### 5 01471753, 2323168, 3930077, 0812196, 4896736, 56350630, 4984374, 3187595, 2637824 ####[address] [address] MCH (RBC) [Entitic mass] 34.1 pg High 27.0-34.0 [facility] Comment on above: Performed By: #### 5 95118342, 5753859, 8700417, 6516515, 3836891, 28101026, 8955570, 8645540, 7421729 ####[address] [address] MCHC (RBC) [Mass/Vol] 36.1 g/dL High 31.4-36.0 [facility] Comment on above: Performed By: #### 5 78341225, 9424657, 5669724, 2942399, 3181829, 16504400, 6148186, 3264800, 5216215 ####[address] [address] MCV (RBC) [Entitic vol] 94.7 fL Normal 80.0-100.0 [facility] Comment on above: Performed By: #### 5 28521740, 2538870, 6057644, 9593211, 5473572, 12473616, 5156950, 5594163, 6744449 ####[address] [place] [address] Platelet mean volume (Bld) [Entitic vol] 8.1 fL Normal 6.4-10.8 [facility] Comment on above: Performed By: #### 5 87957558, 3177651, 8339390, 2626908, 3671328, 90191713, 8392010, 6369211, 1911893 ####[address] [place] [address] Platelets (Bld) [#/Vol] 333.0 E9/L Normal 150.0-500.0 [facility] Comment on above: Performed By: #### 5 07105524, 0413580, 5649445, 1270440, 7500907, 26569107, 5182760, 6839214, 6674363 ####[facility] [address] [place] [address] RBC (Bld) [#/Vol] 3.5 E12/L Low 4.3-5.9 [facility] Comment on above: Performed By: #### 5 24353931, 2926520, 2499958, 7906982, 5863451, 78114103, 6880635, 3576675, 3061530 ####[facility] [address] [place] [address] WBC corrected for nucl RBC Auto (Bld) [#/Vol] 6.9 E9/L Normal 4.0-11.0 [facility] Comment on above: Result Comment: Slid e reviewed by ts . Performed By: #### 5 14672469, 3810742, 1112003, 1210196, 2515691, 36241045, 0900057, 3322085, 4077121 ####[facility] [address] [place] [address] CHEMISTRYOrdered By: SYSTEM SYSTEM on 11-27-2022 25-hydroxyvitamin D3 [Mass/Vol] 16.1 ng/mL Low 30.0 - 100.0 ng/mL [facility] Remisol Albumin [Mass/Vol] 4.5 g/dL Normal 3.3 - 5.0 gm/dL [facility] Albumin/Globulin [Mass ratio] 1.4 {ratio} Normal 1.1 - 2.2 [facility] ALP [Catalytic activity/Vol] 64 [iU]/d Normal 21 - 98 Int._Unit/L [facility] ALT No additional P-5'-P [Catalytic activity/Vol] 16 [iU]/d Normal 6 - 46 Int._Unit/L [facility] Anion gap [Moles/Vol] 9 mmol/L Normal 6 - 16 mEq/L [facility] AST [Catalytic activity/Vol] 16 [iU]/d Normal 5 - 43 Int._Unit/L [facility] Bilirubin [Mass/Vol] 0.3 mg/dL Normal 0.0 - 1 .1 mg/dL [facility] Calcium [Mass/Vol] 9.5 mg/dL Normal 8.9 - 11. 1 mg/dL [facility] Chloride [Moles/Vol] 106 mmol/L Normal 101 - 1 11 mmol/L [facility] CO2 [Moles/Vol] 27 mmol/L Normal 21 - 31 mmol/L [facility] Cobalamin (Vitamin B12) [Mass/Vol] 410 pg/mL Normal 50 - 1500 pg/mL [facility] Creatinine [Mass/Vol] 0.6 mg/dL Normal 0.5 - 1.3 mg/dL [facility] Free T4 [Mass/Vol] 0.70 ng/dL Normal 0.58 - 1. 64 ng/dL [facility] GFR/1.73 sq M.predicted among non-blacks MDRD (S/P/Bld) [Vol rate/Area] 131 mL/min/1.73 m2 Normal >=59mL/min/1 .73 m2 [facility] Chem S Globulin (S) [Mass/Vol] 3.2 g/dL Normal 1.4 - 4.0 gm/dL [facility] Glucose [Mass/Vol] 97 mg/dL Normal 55 - 199 mg/dL [facility] Potassium [Moles/Vol] 4.0 mmol/L Normal 3.5 - 5.3 mmol/L [facility] Protein [Mass/Vol] 7.7 g/dL Normal 6.0 - 7.8 gm/dL [facility] Sodium [Moles/Vol] 138 mmol/L Normal 135 - 145 mmol/L [facility] TSH Qn 16.62 m[IU]/L High 0.34 - 5.60 mcIU/mL [facility] Urea nitrogen [Mass/Vol] 11 mg/dL Normal 5 - 21 mg/dL [facility] Urea nitrogen/Creatinine [Mass ratio] 18 mg/mg Normal 10 - 20 [facility] CMPon 11-27-2022 Albumin [Mass/Vol] 4.5 g/dL Normal 3.3-5.0 [facility] Comment on above: Performed By: #### 5 20523054, 2901244, 8582682, 0901248, 7606530, 48159048, 4513632, 9482762, 1804664 ####[facility] [address] [place] [address] Albumin/Globulin (S) [Mass conc ratio] 1.4 Normal 1.1-2.2 [facility] Comment on above: Performed By: #### 5 38125803, 3362439, 7618914, 4681335, 6012737, 87717096, 6519205, 7107952, 8593479 ####[facility] [address] [place] [address] ALP [Catalytic activity/Vol] 64 Int._Unit/L Normal 21-98 [facility] Comment on above: Performed By: #### 5 25864988, 2640786, 4237375, 2275732, 3233523, 03214628, 8450023, 7941196, 1984213 ####[facility] [address] [place] [address] ALT No additional P-5'-P [Catalytic activity/Vol] 16 Int._Unit/L Normal 6-46 [facility] Comment on above: Performed By: #### 5 91371060, 5801293, 4656733, 1730348, 5195549, 13645267, 7629304, 8599875, 2803419 ####[facility] [address] [place] [address] Anion gap [Moles/Vol] 9 mmol/L Normal 6-16 [facility] Comment on above: Performed By: #### 5 41090116, 4836016, 9415310, 9753411, 3477207, 43520450, 2357809, 2197106, 4541220 ####[facility] [address] [place] [address] AST [Catalytic activity/Vol] 16 Int._Unit/L Normal 5-43 [facility] Comment on above: Performed By: #### 5 31350162, 6763622, 6734025, 2827337, 3627469, 30900375, 7957614, 9857610, 0070827 ####[facility] [address] [place] [address] Bilirubin [Mass/Vol] 0.3 mg/dL Normal 0.0-1.1 [facility] Comment on above: Performed By: #### 5 43711178, 7573385, 4001993, 7788914, 6092546, 56707097, 9307101, 2073478, 5966494 ####[facility] [address] [place] [address] Calcium [Mass/Vol] 9.5 mg/dL Normal 8.9-11.1 [facility] Comment on above: Performed By: #### 5 18576694, 6494172, 0185802, 5370628, 9745997, 22007437, 4337050, 9387032, 1078279 ####[facility] [address] [place] [address] Chloride [Moles/Vol] 106 mmol/L Normal 101-111 [facility] Comment on above: Performed By: #### 5 25519541, 1184850, 8372757, 9865094, 9739202, 32413416, 8909191, 6232487, 8345964 ####[facility] [address] [place] [address] CO2 [Moles/Vol] 27 mmol/L Normal 21-31 [facility] Comment on above: Performed By: #### 5 60324647, 9555426, 4511320, 0669084, 3242148, 13725685, 3381344, 7835115, 9936215 ####[facility] [address] [place] [address] Creatinine [Mass/Vol] 0.6 mg/dL Normal 0.5-1.3 [facility] Comment on above: Performed By: #### 5 00462927, 0265167, 5154591, 3069413, 0097768, 90553744, 5019011, 7301313, 2467898 ####[facility] [address] [place] [address] Globulin (S) [Mass/Vol] 3.2 g/dL Normal 1.4-4.0 [facility] Comment on above: Performed By: #### 5 95870964, 2579125, 4701179, 2632877, 2579033, 00134689, 1859426, 8144417, 5569370 ####[facility] [address] [place] [address] Glucose [Mass/Vol] 97 mg/dL Normal 55-199 [facility] Comment on above: Result Comment: If t his glucose result represents a fasting glucose, interpretation should refer to the following reference range: 55-99 mg/dL Performed By: #### 5 74509178, 0627390, 4830431, 7017016, 3786115, 80601555, 3448341, 2964515, 4244993 ####[facility] [address] [place] [address] Potassium [Moles/Vol] 4.0 mmol/L Normal 3.5-5.3 [facility] Comment on above: Performed By: #### 5 19966361, 5873106, 6254630, 4515656, 2335714, 70783283, 5775213, 7196559, 4123875 ####[facility] [address] [place] [address] Protein [Mass/Vol] 7.7 g/dL Normal 6.0-7.8 [facility] Comment on above: Performed By: #### 5 34655356, 4997541, 3693330, 7521359, 7550529, 02065329, 1348680, 5884506, 2775083 ####[facility] [address] [place] [address] Sodium [Moles/Vol] 138 mmol/L Normal 135-145 [facility] Comment on above: Performed By: #### 5 47755659, 0906134, 7113354, 9673022, 4905489, 04198354, 4094300, 1719734, 9787288 ####[facility] [address] [place] [address] Urea nitrogen [Mass/Vol] 11 mg/dL Normal 5-21 [facility] Comment on above: Performed By: #### 5 54942742, 8321468, 6412408, 1076067, 2209807, 83094217, 2453886, 9606286, 1454362 ####[facility] [address] [place] [address] Urea nitrogen/Creatinine [Mass ratio] 18 No Units Normal 10-20 [facility] Comment on above: Performed By: #### 5 96386758, 2412275, 3182750, 6032545, 1326826, 96256981, 1981113, 4521724, 1010604 ####[facility] [address] [place] [address] Consent for Treatmenton 10-31 Consent for Treatment [id number] 42#1.00CD:127 Normal [facility] Free T4on 11-27-2022 Free T4 [Mass/Vol] 0.70 ng/dL Normal 0.58-1.64 [facility] Comment on above: Performed By: #### 5 08637318, 7109354, 8891378, 6690516, 8210727, 49273258, 1549192, 3547352, 8065025 ####[facility] [address] [place] [address] HEMATOLOGYOrdered By: SYSTEM SYSTEM on 11-27-2022 Basophils/100 WBC (Bld) 1.1 % Normal 0.0 - 2.0 % [facility] HemeAutoSS Basophils/Leukocytes Auto (Bld) [Pure # fraction] 0.1 E9/L Normal 0.0 - 0.2 E9/L [facility] HemeAutoSS Eosinophils/100 WBC (Bld) 11.7 % High 0.0 - 8.0 % [facility] HemeAutoSS Eosinophils/Leukocytes Auto (Bld) [Pure # fraction] 0.8 E9/L High 0.0 - 0.5 E9/L [facility] HemeAutoSS Lymphocytes/100 WBC (Bld) 18.6 % Normal 14.0 - 50.0 % [facility] HemeAutoSS Lymphocytes/Leukocytes Auto (Bld) [Pure # fraction] 1.3 E9/L Normal 1.0 - 4.0 E9/L [facility] HemeAutoSS Monocytes/100 WBC (Bld) 5.6 % Normal 4.0 - 14.0 % [facility] HemeAutoSS Monocytes/Leukocytes Auto (Bld) [Pure # fraction] 0.4 E9/L Normal 0.2 - 1.0 E9/L [facility]eAutoSS Neutrophils/100 WBC (Bld) 63.0 % Normal 36.0 - 75.0 % [facility] HemeAutoSS Neutrophils/Leukocytes Auto (Bld) [Pure # fraction] 4.4 E9/L Normal 2.0 - 7.5 E9/L [facility] HemeAutoSS HEMATOLOGYOrdered By: Moira Ramos on 11-27-2022 Erythrocyte distribution width (RBC) [Ratio] 12.4 % Normal 10.9 - 14.2 % [facility] HemeAutoSS Hematocrit (Bld) [Volume fraction] 32.8 % Low 34.0 - 46.0 % [facility]eAutoSS Hemoglobin (Bld) [Mass/Vol] 11.8 g/dL Low 12.0 - 16.0 gm/dL [facility]eAutoSS MCH (RBC) [Entitic mass] 34.1 pg High 27.0 - 34.0 pg [facility]eAutoSS MCHC (RBC) [Mass/Vol] 36.1 g/dL High 31.4 - 36.0 gm/dL [facility]eAutoSS MCV (RBC) [Entitic vol] 94.7 fL Normal 80.0 - 100.0 fL [facility]eAutoSS Platelet mean volume (Bld) [Entitic vol] 8.1 fL Normal 6.4 - 10.8 fL [facility]eAutoSS Platelets (Bld) [#/Vol] 333.0 E9/L Normal 150.0 - 500.0 E9/L [facility]Auto[facility] RBC (Bld) [#/Vol] 3.5 E12/L Low 4.3 - 5.9 E12/L [facility] WBC corrected for nucl RBC Auto (Bld) [#/Vol] 6.9 E9/L Normal 4.0 - 11.0 E9/L [facility] Comment on above: Result Comment: Slid e reviewed by ts . Physician Orderon 11-27-2022 Physician Order [id number] 3#1.00CD:127 Normal [facility] TSHon 11-27-2022 TSH Qn 16.62 m[IU]/L High 0.34-5.60 [facility] Comment on above: Performed By: #### 5 03498294, 0299506, 7184691, 0676335, 5203754, 82153107, 9400110, 2561693, 5732117 ####[facility] [address] [place] [address] Vit B12on 11-27-2022 Cobalamin (Vitamin B12) [Mass/Vol] 410 pg/mL Normal 50-1500 [facility] Comment on above: Performed By: #### 5 06346700, 2654087, 0710152, 3339942, 2008083, 69409195, 6655894, 2403502, 0610407 ####[facility] [address] [place] [address] Vitamin D 25 Hydroxyon 11-27 25-hydroxyvitamin D3 [Mass/Vol] 16.1 ng/mL Low 30.0-100.0 [facility] Comment on above: Result Comment: Vit denise D deficiency has been defined as a level of serum 25-OH vitamin D less than 20 ng/mL (1,2) by the Fries of Medicine and an Endocrine Society practice guideline. The Endocrine Society further defined vitamin D insufficiency as a level between 21 and 29 ng/mL (2). 1. IOM (Fries of Medicine). 2010. Dietary reference intakes for calcium and D. [place]: The National Academies Press. 2. Kevin MF, David NC, David ZAPATA, et al. Evaluation, treatment, and prevention of vitamin D deficiency: an Endocrine Society clinical practice guideline. JCEM. 2011 Dec; 96 (7):1911-30. Performed By: #### 5 [id number], 2923123, 4742305, 0868645, 3082960, 09066678, 8658829, 0019212, 1151436 ####[facility] [address] [place] [address] eGFRon 11-27-2022 GFR/1.73 sq M.predicted among non-blacks MDRD (S/P/Bld) [Vol rate/Area] 131 mL/min/1.73 m2 Normal >=59 [facility] Comment on above: Order Comment: Order added by Discern Expert. Result Comment: Store Manager whit kidney disease could be indicated at eGFR's of less than 60 mL/min/1.73m2. Kidney failure is indicated at less than 15 mL/min/1.73m2. Performed By: #### 5 00578552, 6990926, 7236519, 0537760, 1269808, 96889331, 9113225, 7943795, 6291802 ####[facility] [address] [place] [address] Free T4 (Free Thyroxine)on 07-30-2021 Free T4 [Mass/Vol] 0.53 ng/dL Low 0.61-1.12 [facility] Comment on above: Performed By: #### T 4F, TSH3, T3F #### [facility] [address] TSH DL <= 0.005 mIU/L QnOrde red By: Richie Dickerson on 05-30-2022 TSH Qn 17.12 m[IU]/L 0.45-5.33 [facility] Thyroid Stimulating Hormoneo n 05-30-2022 TSH Qn 17.12 m[IU]/L High 0.45-5.33 [facility] Comment on above: Result Comment: PERF ORMED BY: [facility] [address] [place] [address] PATHOLOGIST C4 PLANNER EVONNE BLAKE M.D. Performed By: #### T 4F, TSH3, T3F #### [facility] [address] [place] [address] [place] Thyroxine (T4) free [Mass/vo lume] in Serum or PlasmaOrdered By: Richie Dickerson on 05-30-2022 Free T4 [Mass/Vol] 0.53 ng/dL 0.61-1.12 [facility] Triiodothyronine (T3) Freeon 05-30-2022 Triiodothyronine (T3) Free 4.76 pg/mL High 2.50-3.90 [facility] Comment on above: Result Comment: PERF ORMED BY: [facility] [address] [facility] [place] [address] PATHOLOGIST C4 PLANNER EVONNE BLAKE M.D. Performed By: #### T 4F, TSH3, T3F #### [facility] [id number] [facility] Triiodothyronine (T3) Free [ Mass/volume] in Serum or PlasmaOrdered By: Richie Dickerson on 05-30-2022 Free T3 [Mass/Vol] 4.76 pg/mL 2.50-3.90 [facility] MICRO OTHER TESTSOrdered By: Moira Ramos on 07-05-2021 Rapid COV Int NEG [place] (07/05/21 9:48 AM) Normal [facility] Man Sero Rapid COV Int POS Ctl [place] (07/05/21 9:48 AM) Normal [facility] Sero SARS-CoV+SARS-CoV-2 (COVID-19) Ag IA.rapid Ql (Resp) Detected 1 *CRIT* (07/05/21 9:48 AM) Invalid Interpretation Code Not Detected [facility] Comment on above: Result Comment: no c all per new covid protocol XR wrist LT 2Von 05-03-2021 XR wrist LT 2V [facility] [employer] Other XR wrist LT 2V [facility] [employer] Other XR wrist LT 2V [address] [facility] [employer] Other [place] 2[place] [address] No [employer] Other XR wrist LT 2V XRay Report [employer] Other XR wrist LT 2V Signed [employer] Other XR wrist LT 2V Patient: Trudy Devine MR#: [id number] [employer] Other XR wrist LT 2V 2640 [employer] Other XR wrist LT 2V : 2000 Acct:[id number] [employer] Other XR wrist LT 2V Age/Sex: 20 / F ADM Date: 05/03/21 [employer] Other XR wrist LT 2V Loc: XD Room: Type: [facility] [employer] Other XR wrist LT 2V Attending Dr: Richie Dickerson DO [employer] Other XR wrist LT 2V Ordering Provider: Rcihie Dickerson DO [employer] Other XR wrist LT 2V Date of Service: 05/03/21 [employer] Other XR wrist LT 2V XR/XR wrist LT 2V: Left wrist pain [employer] Other XR wrist LT 2V Copies to: Richie Dickerson DO [facility] Other XR wrist LT 2V LEFT WRIST - 2 views [facility] Other XR wrist LT 2V COMPARISON: None [employer] Other XR wrist LT 2V CLINICAL DATA: Patient fell a week ago roller skating and has pain at the medial left breast. [facility] Other XR wrist LT 2V AP and lateral views were obtained. There is no acute fracture or dislocation. There is no [facility] Other XR wrist LT 2V significant soft tissue swelling. [facility] Other XR wrist LT 2V XR/XR wrist LT 2V [facility] Other XR wrist LT 2V IMPRESSION: [employer] Other XR wrist LT 2V NO ACUTE BONY INJURY. [facility] Other XR wrist LT 2V Impression dictated by: Yaquelin Cueva M.D.05/03/2021 5:10 PM [facility] Other XR wrist LT 2V Dictation Location: [place] [address] [facility] Other XR wrist LT 2V Transcribed By: PWS 05/03/21 [facility] Other XR wrist LT 2V Dictated By: Yaquelin Cueva MD 05/03/21 1709 [facility] Other XR wrist LT 2V Signed By: [employer] Other XR wrist LT 2V 05/03/21 1710 [facility] Other ED Clinical Summaryon 2020 ED Clinical Summary [address] [address] ED Clinical Summary Person Information Name: Trudy Devine/[facility] Age: 20 Years : 2000 Sex: Female PCP: Marital Status: Single Phone: Race: White Ethnicity: Not or Language: Czech Visit Reason: Chest pain; Chest pain - Cardiac Acuity: 4 Enc Type: Emergency Med Service: Emergency Medicine Arrival: 08/22/2020 12:26:04 Discharge: 08/22/2020 13:44:00 LOS: 000 01:18 Checkin: 08/22/2020 12:26:04 Checkout: 08/22/2020 13:44:00 Dispo Type: Home or Self Care Address: [address] [place] [address] [place] [address] Provider Notes: Diagnosis: 1:Positive test; 2:Asthma flare Problems No Problems Documented Smoking Status: Smoking Status Never (less than 100 in lifetime) Functional Status: Sensory Deficits: History of Falls: Mobility Assistance Prior to Admission: ADLs: Current Level of Assistance for Self-Care/Mobility: Cognitive Status: Allergies No Known Medication Allergies Laboratory or Other Results This Visit (last charted value for your 08/22/2020 visit) Chemistry 08/22/2020 12:48 PM Urine Preg: Positive Measurements: Height: Weight: Blood Pressure: /76 mmHg BMI: Procedures REMOVAL OF TONSILS EGD (esophagogastroduod enoscopy) gastric outlet reduction Colonoscopy Immunizations No Immunizations Documented This Visit Final Med List: No Medications Documented Care Team Members: Attending Physician: Johanna Azevedo PA-C Consulting Physician: Referring Physician: Provider Role Assigned Unassigned Johanna Azevedo PA-C ED MidLevel 08/22/2020 12:35:43 Stanford Patterson ED Nurse 08/22/2020 12:35:48 Follow up: With: Address: When: Cait [address] [address] [phone] Business (1) Discharge Orders: Discharge Patient 08/22/20 13:20:00 EST, Discharge to Home, Self Return to Work/School 08/22/20 0:00:00 EST, 08/23/20 0:00:00 EST, 08/22/20 0:00:00 EST, Positive test Patient Education Information: Preparing for ; Using an Inhaler; , New Dx AAPCC Poison Help line: . [facility] Hotline: [place] Tobacco Quit Line: [place], [place]) [address]: [phone] [place], [place]) [address]: [phone] [facility] [address] [place], [place]: [phone] [facility] ED Note-Physicianon 08-22-19 ED Note-Physician Chief Complaint Pt. reports chest pain starting around 1200 today. Hx. of asthma, used inhaler with no relief History of Present Illness The patient is a 20-year-old female presenting via EMS for evaluation of chest discomfort with the potential of a flare. 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 Chest pain is described as pressure, 6 in severity. Did use her inhaler however has not taken any other medication for pain relief. She is not a current smoker. No associated cardiac history. No prior history of DVTs nor does she report any lower extremity or pain. No trauma to the area. Last menses was in July and has had 2+ test at home. Denies any fever, chills, headache, lightheadedness, dizziness, COVID exposure. No other complaints at this time. Review of Systems As reviewed in the HPI. All other systems reviewed are negative or normal. Physical Exam Constitutional: [Alert, awake, no apparent distress, nontoxic] Head: [Normocephalic, atraumatic] Eyes: [PERRL, extraocular movements intact, clear conjunctiva] ENT: [ Ear canals-normal, clear. TMs- normal, no erythema. Nose-normal, no drainage, septum midline. Mouth-mucus membranes moist and intact. Posterior pharynx-airway patent, no erythema, exudate, or masses. Uvula midline.] Neck: [Neck is supple with FROM, no nuchal rigidity, no cervical spinal tenderness. Trachea is midline. No lymphadenopathy. No meningeal signs.] Chest: [Appears normal, symmetrical rise,minimal sternal tenderness to palpation.] Cardiovascular: [Regular rate and rhythm, no appreciated murmurs, normal S1 and S2, strong radial pulses w/ intact distal perfusion] Respiratory: [Lungs clear to auscultation w/o wheezes, rhonchi, or rales, normal excursion, no accessory muscle, no stridor] Abdomen: [Appears normal. Bowel sounds normoactive throughout. Soft and non-tender in all quadrants. No palpable masses, non-distended, no rebound, no guarding] Skin: [[place], warm, dry. No rashes, cellulitis, or petechiae. Normal turgor.] Neuro: [Alert and oriented X 3, GCS 15. Normal mentation and speech. Moves all extremities w/o motor or sensory deficit, gait is stable, strength normal in all extremities] Vitals & Measurements T: 36.8 ?C (Oral) RR: 21 BP: 126/76 SpO2: 99% HT: 173 cm Medical Decision Making The patient presents for evaluation of a potential asthma flare with possibility of . On physical exam she is hemodynamically stable, nontoxic-appearing, afebrile, lungs are clear, 99% on room air. She does have reproducible pain to the sternum. Due to the potential of we will treat with Tylenol. Will obtain a urine preg in ED. Plan for discharge home with asthma care instructions. Follow-up outpatient with PCP and OBGYN. Return precautions given including any worsening symptoms, cyanosis, chest pain, fevers, vomiting, lethargy, irritability, or other concerns of worsening illness. Patient and/or Caregiver verbalized understanding, feels comfortable with proposed plan, and all questions were answered prior to discharge. They will follow-up over the phone with their PCP in 2-3 days. The results of pertinent diagnostic studies and exam findings were discussed. The patient?s provisional diagnosis and plan of care were discussed with the patient and present family. The patient and/or present family expressed understanding of the diagnosis and plan. The nurse was instructed to provide written instructions and appropriate follow-up information. The patient understands their need and responsibility to obtain additional follow-up as instructed. The risks of medications administered and prescribed were discussed with the patient and family present. Assessment/Plan 1. Positive test Ordered: Return to Work/School 2. Asthma flare Ordered: Return to Work/School Orders: Discharge Patient Refresh vitals and sections below: Problem List/Past Medical History Ongoing Asthma Hyperthyroidism Historical No qualifying data Procedure/Surgical History Colonoscopy EGD (esophagogastroduod enoscopy) gastric outlet reduction REMOVAL OF TONSILS Medications Inpatient albuterol 2.5 mg/3 mL (0.083%) inhalation solution, 2.5 mg= 3 mL, NEB, Once, PRN Tylenol, 1000 mg, Oral, Once Home No active home medications Allergies No Known Medication Allergies Social History Alcohol Never Substance Abuse Denies All Tobacco Never (less than 100 in lifetime) Use:. Lab Results Testing LATEST RESULTS Urine Preg 08/22/20 12:48 Positive Diagnostic Results XRay No qualifying data available (XRay) Ultrasound No qualifying data available (Ultrasound) Magnetic Resonance Imaging No qualifying data available (MRI) Electronically signed by Johanna Azevedo PA-C 08/22/20 16:30 EST [facility] Vital Signs Date Time Vital Sign Value Performing Clinician Mckenzie german 05-31-2023 08:30-0500 Body height 167.64 cm Richie Tuan Other [facility] Other 05-31-2023 08:30-0500 Body mass index (BMI) [Ratio] 233.04 kg/m2 Richie Tuan Other [facility] Other 05-31-2023 08:30-0500 Body mass index (BMI) [Ratio] 23.24 kg/m2 Richie Tuan Other [facility] Other 05-31-2023 08:30-0500 Body temperature 98.9 [degF] Richie Tuan Other [facility] Other 05-31-2023 08:30-0500 Body weight 655 kg Richie Tuan Other [facility] Other 05-31-2023 08:30-0500 Body weight 65.32 kg Richie Tuan Other [facility] Other 05-31-2023 08:30-0500 Diastolic blood pressure 78 mm[Hg] Richie Tuan Other [facility] Other 05-31-2023 08:30-0500 Respiratory rate 20 /min Richie Tuan Other [facility] Other 05-31-2023 08:30-0500 SaO2% (BldA) [Mass fraction] 99 % Richie Tuan Other [facility] Other 05-31-2023 08:30-0500 Systolic blood pressure 124 mm[Hg] Richie Tuan Other [facility] Other 05-16-2023 13:07-0500 Diastolic blood pressure 72 mm[Hg] Narinder Marrero [facility] 05-16-2023 13:07-0500 Heart rate 91 /min Narinder Marrero [facility] 05-16-2023 13:07-0500 SaO2% (BldA) [Mass fraction] 100 % [facility] 05-16-2023 13:07-0500 Systolic blood pressure 112 mm[Hg] Narinder Marrero [facility] 04-30-2023 13:45-0400 Body height 167.64 cm Richie Tuan Other [facility] Other 04-30-2023 13:45-0400 Body mass index (BMI) [Ratio] 23.72 kg/m2 Richie Tuan Other [facility] Other 04-30-2023 13:45-0400 Body temperature 97 [degF] Richie Tuan Other [facility] Other 04-30-2023 13:45-0400 Body weight 66.68 kg Richie Tuan Other [facility] Other 04-30-2023 13:45-0400 Diastolic blood pressure 62 mm[Hg] Richie Tuan Other [facility] Other 04-30-2023 13:45-0400 Respiratory rate 20 /min Richie Tuan Other [facility] Other 04-30-2023 13:45-0400 SaO2% (BldA) [Mass fraction] 98 % Richie Tuan Other [facility] Other 04-30-2023 13:45-0400 Systolic blood pressure 122 mm[Hg] Richie Tuan Other [facility] Other 04-29-2023 12:50-0400 Body height 167.64 cm Tom Gerardoaker Other [facility] Other 04-29-2023 12:50-0400 Body mass index (BMI) [Ratio] 22.59 kg/m2 Tom Bales Other [facility] Other 04-29-2023 12:50-0400 Body temperature 98.4 [degF] Tom Bales Other [facility] Other 04-29-2023 12:50-0400 Body weight 63.5 kg Tom Bales Other [facility] Other 04-29-2023 12:50-0400 Diastolic blood pressure 86 mm[Hg] Tom Bales Other [facility] Other 04-29-2023 12:50-0400 Respiratory rate 20 /min Tom Bales Other [facility] Other 04-29-2023 12:50-0400 SaO2% (BldA) [Mass fraction] 98 % Tom Bales Other [facility] Other 04-29-2023 12:50-0400 Systolic blood pressure 122 mm[Hg] Tom Bales Other [facility] Other 03-28-2023 12:41-0400 Diastolic blood pressure 66 mm[Hg] Narinder Marrero [facility] 03-28-2023 12:41-0400 Heart rate 102 /min Narinder Marrero [facility] 03-28-2023 12:41-0400 SaO2% (BldA) [Mass fraction] 98 % Narinder Marrero [facility] 03-28-2023 12:41-0400 Systolic blood pressure 108 mm[Hg] Narinder Marrero [facility] 11-27-2022 08:30-0400 Body height 167.64 cm Richie Tuan Other [facility] Other 11-27-2022 08:30-0400 Body mass index (BMI) [Ratio] 23.08 kg/m2 Richie Tuan Other [facility] Other 11-27-2022 08:30-0400 Body temperature 97.4 [degF] Richie Tuan Other [facility] Other 11-27-2022 08:30-0400 Body weight 64.86 kg Richie Tuan Other [facility] Other 11-27-2022 08:30-0400 Diastolic blood pressure 70 mm[Hg] Richie Tuan Other [facility] Other 11-27-2022 08:30-0400 Respiratory rate 20 /min Richie Tuan Other [facility] Other 11-27-2022 08:30-0400 SaO2% (BldA) [Mass fraction] 98 % Richie Tuan Other [facility] Other 11-27-2022 08:30-0400 Systolic blood pressure 110 mm[Hg] Richie Tuan Other [facility] Other 10-31-2021 10:30-0400 Body height 167.64 cm Richie Tuan Other [facility] Other 10-31-2021 10:30-0400 Body mass index (BMI) [Ratio] 21.46 kg/m2 Richie Tuan Other [facility] Other 10-31-2021 10:30-0400 Body temperature 98.6 [degF] Richie Tuan Other [facility] Other 10-31-2021 10:30-0400 Body weight 60.33 kg Richie Tuan Other [facility] Other 10-31-2021 10:30-0400 Diastolic blood pressure 62 mm[Hg] Richie Tuan Other [facility] Other 10-31-2021 10:30-0400 Respiratory rate 20 /min Richie Tuan Other [facility] Other 10-31-2021 10:30-0400 SaO2% (BldA) [Mass fraction] 98 % Richie Tuan Other [facility] Other 10-31-2021 10:30-0400 Systolic blood pressure 108 mm[Hg] Richie Tuan Other [facility] Other 05-03-2021 14:45-0400 Body height 167.64 cm Richie Tuan Other [facility] Other 05-03-2021 14:45-0400 Body temperature 97.5 [degF] Richie Tuan Other [facility] Other 05-03-2021 14:45-0400 Diastolic blood pressure 68 mm[Hg] Richie Tuan Other [facility] Other 05-03-2021 14:45-0400 Respiratory rate 20 /min Richie Tuan Other [facility] Other 05-03-2021 14:45-0400 SaO2% (BldA) [Mass fraction] 95 % Richie Tuan Other [facility] Other 05-03-2021 14:45-0400 Systolic blood pressure 108 mm[Hg] Richie Tuan Other [facility] Other Encounters Encounter Date Encounter Type Care Provider Facility Start: 06-28-2023 End: 06-28-2023 ambulatory Richie Tuan Other [facility] Other Start: 06-28-2023 Telephone encounter Richie Tuan [facility] Start: 06-17-2023 End: 06-17-2023 ambulatory Richie Tuan Other [facility] Other Start: 06-17-2023 Telephone encounter Richie Tuan [facility] Start: 06-13-2023 End: 06-13-2023 ambulatory Richie Tuan Other [facility] Other Start: 06-13-2023 Telephone encounter Richie Tuan [facility] Start: 06-07-2023 End: 06-07-2023 ambulatory Richie Tuan Other [facility] Other Start: 06-07-2023 Telephone encounter Richie Tuan [facility] Start: 05-31-2023 Office outpatient visit 15 minutes Richie Tuan [facility] Start: 05-31-2023 End: 06-01-2023 ambulatory RICHIE M TUAN [facility] [place] Other Start: 05-31-2023 End: 05-31-2023 Patient encounter procedure RICHIE M TUAN [facility] Start: 05-21-2023 End: 05-22-2023 ambulatory RICHIE M TUAN [place] Start: 05-21-2023 End: 05-21-2023 Patient encounter procedure RICHIE M TUAN [facility] Start: 05-16-2023 End: 05-17-2023 ambulatory XXXX NONE Facility[place] Start: 05-16-2023 End: 05-16-2023 Patient encounter procedure Narinder Marrero [facility] Start: 04-30-2023 End: 04-30-2023 ambulatory Richie Tuan Other [facility] Other Start: 04-30-2023 Office outpatient visit 15 minutes Richie Tuan [facility] Start: 04-30-2023 Telephone encounter Richie Tuan [facility] Start: 04-29-2023 End: 04-29-2023 ambulatory Tom Bales Other [facility] Other Start: 04-29-2023 Office outpatient visit 15 minutes Tom Bales [facility] Start: 03-29-2023 End: 03-29-2023 ambulatory Richie Tuan Other [facility] Other Start: 03-29-2023 Telephone encounter Richie Tuan [facility] Start: 03-28-2023 End: 03-29-[address] [facility]OOF BOLTER JEFFERY JAEGER Facility[place] Start: 03-28-2023 End: 03-28-2023 Patient encounter procedure Narinder Marrero [facility] Start: 12-25-2022 End: 12-25-2022 ambulatory Richie Tuan Other [facility] Other Start: 12-25-2022 Telephone encounter Richie Tuan [facility] Start: 12-24-2022 End: 12-24-2022 ambulatory Richie Tuan Other [facility] Other Start: 12-24-2022 Telephone encounter Richie Tuan [facility] Start: 11-29-2022 End: 11-29-2022 ambulatory Richie Tuan Other [facility] Other Start: 11-29-2022 Telephone encounter Richie Tuan [facility] Start: 11-27-2022 Office outpatient visit 25 minutes Richie Tuan [facility] Start: 11-27-2022 Telephone encounter Richie Tuan [facility] Start: 11-27-2022 End: 11-28-2022 ambulatory RICHIE M TUAN [facility] [place] Other Start: 11-27-2022 End: 11-27-2022 Patient encounter procedure RICHIE M TUAN [facility] Start: 09-21-2022 End: 09-21-2022 ambulatory Richie Tuan Other [facility] Other Start: 09-21-2022 Telephone encounter Richie Tuan [facility] Start: 05-31-2022 End: 05-31-2022 ambulatory Richie Tuan Other [place] [employer] Other Start: 05-31-2022 Telephone encounter Richie Tuan [facility] Start: 05-30-2022 Telephone encounter Richie Tuan [facility] Start: 05-30-2022 End: 05-30-2022 ambulatory Richie M. Tuan Facility:[facility] Start: 05-30-2022 End: 05-30-2022 ambulatory DO Richie M. Tuan Work Phone: [facility] Work Phone: Start: 05-30-2022 End: 05-30-2022 Patient encounter procedure DO Richie Tuan Work Phone: [facility] [place] Start: 12-25-2021 End: 12-25-2021 ambulatory Richie M. Tuan Facility:[facility] Start: 12-25-2021 End: 12-25-2021 Discharged Recurring DO Richie Tuan Work Phone: [facility] [place] Start: 10-31-2021 End: 10-31-2021 ambulatory Richie Tuan Other [facility] Other Start: 10-31-2021 Office outpatient visit 15 minutes Richie Tuan [facility] Start: 10-05-2021 End: 10-05-2021 ambulatory Richie Tuan Other [facility] Other Start: 10-05-2021 Telephone encounter Richie Tuan [facility] Start: 10-03-2021 End: 10-03-2021 ambulatory Richie Tuan Other [facility] Other Start: 10-03-2021 Telephone encounter Richie Tuan [facility] Start: 07-10-2021 End: 07-10-2021 ambulatory Richie Tuan Other [facility] Other Start: 07-10-2021 Telephone encounter Richie Tuan [facility] Start: 07-05-2021 End: 07-05-2021 ambulatory Richie Tuan Other [facility] Other Start: 07-05-2021 Telephone encounter Richie Tuan [facility] Start: 07-05-2021 End: 10-03-2021 Recurring RICHIE M TUAN [facility] Start: 05-03-2021 End: 05-03-2021 ambulatory Richie Tuan Other [facility] Other Start: 05-03-2021 Office outpatient visit 15 minutes Richie Tuan [facility] Start: 08-22-2020 End: 08-22-2020 Emergency department patient visit JOHANNA REED Facility:[facility] Start: 08-29-2017 Ambulatory Jeffery Farr Fa cility:[id number] Procedures Date Procedure Procedure Detail Performing Clinician Colonoscopy RICHIE TUAN Education about post operative care after adenotonsillectomy RICHIE TUAN Esophagogastroduoden oscopy gastric outlet reduction RICHIE TUAN Fiberoptic colonoscopy Lidia Zuniga History of Myringotomy Lidia Zuniga Myringotomy and drainage of middle ear RICHIE TUAN Tonsillectomy and adenoidectomy Lidia Zuniga Immunizations Immunization Date Immunization Notes Care Provider Fa cility 12-01-2020 COVID-19 mRNA-1273 (Moderna) DO Richie Tuan Work Phone: [facility] 11-01-2020 COVID-19 mRNA-1273 (Moderna) DO Richie Tuan Work Phone: [facility] 05-28-2017 influenza, seasonal, injectable Richie Tuan Other [facility] Other NEGATED: Highlighted row has not occurred!05-12-2020 influenza, injectable, quadrivalent, contains preservative Patient Objection Richie Tuan Other [facility] Other NEGATED: Highlighted row has not occurred!05-19-2019 influenza, injectable, quadrivalent, contains preservative Richie Tuan Other [facility] Other NEGATED: Highlighted row has not occurred!03-17-2018 influenza, injectable, quadrivalent, contains preservative Richie Tuan Other [facility] Other Payers Date Payer Category Payer Unknown [id number] 2022 Unknown [id number] 2021 Self-pay [id number] 2021 Unknown [id number] 2020 Unknown 2001 Unknown [id number] 2001 Unknown [id number] 2001 Unknown [id number] 2001 Unknown [id number] 2001 Unknown [id number] 727 2001 Unknown [id number] Private Health Insurance [facility] [id number] Unknown Regular Ins[employer]-Liability 35- [id number] Unknown [id number] Unknown [id number] 531 Social History Date Type Detail Facility Assertion Tobacco smoking consumption unknown (finding) [facility] [address] Work Phone: Tobacco [facility] Comment on above: denies Sex Assigned At Female [facility] Other Start: 04-15-2021 End: 03-28-2023 Tobacco smoking status NHIS Never smoked tobacco (finding) [facility] Comment on above: patient has never sm oked, only her sign. other [facility] Former smoker Start: 2000 Sex Assigned At Female F [facility] Tobacco smoking status No Smoking Status Entered [facility] Tobacco smoking status Never [facility] Comment on above: patient has never sm oked, only her sign. other [facility] Former smoker Functional Status Date Assessment Result Facility 05-16-2023 Functional Status No [facility] 03-28-2023 Functional Status No [facility] NEGATED: Highlighted row Functional performance Functional status health issues are not documented Disease [facility] Work Phone: Mental Status Date Assessment Result Facility NEGATED: Highlighted row Cognitive function [Interpretation] Cognitive status health issues are not documented Disease [facility] Work Phone: Clinical Notes 05-03-2021 to 06-28-2023 Note Date & Type Note Facility 06-28-2023 Evaluation note Encounter Date Diagnosis Assessment Notes May, Hypothyroidism, unspecified (ICD-10 - E03.9) [facility] Other 12-08-2023 Evaluation note* Encounter Date Diagnosis Assessment Notes Treatment Notes Treatment Clinical Notes May, Hypothyroidism, unspecified (ICD-10 - E03.9) [facility] Other 12-01-2023 Evaluation + Plan note Diagnostic Tests Pending * T3 Free 05/31/23 Future Scheduled Tests Radiology* Echo Transthoracic Complete 03/28/23 [facility]12-01-2023 Evaluation note* Encounter Date Diagnosis Assessment Notes Treatment Notes Treatment Clinical Notes May, Hypothyroidism, unspecified (ICD-10 - E03.9) Lengthy discussion with patient today that since we made a change to her thyroid back in the spring, she has not completed any blood work. She states she will do this so this morning. Order printed. [facility] Other 10-31-2023 Evaluation note* Encounter Date Diagnosis Assessment Notes Treatment Notes Treatment Clinical Notes Mar, Subareolar mass of left breast (ICD-10 - N63.42) We will pursue imaging, mammogram, with ultrasound if needed. We will call her with results. We did talk about the potential of needing to see a general surgery or radiology for biopsy depending on results. [facility] Other 10-30-2023 Evaluation note* Encounter Date Diagnosis Assessment Notes Treatment Notes Treatment Clinical Notes Mar, Skin rash (ICD-10 - R21) Mar, Allergic contact dermatitis, unspecified trigger (ICD-10 - L23.9) Apply twice a day as prescribed. Call me if you develop worsening symptoms. Call the cardiology clinic and tell them that the patch was causing intense intching and pain it was medically recommended to remove the device to be treated for severe contact dermatitis. Pt has rash where heart monitor is on her sternum x1 week. She begins crying as she is describing the level of discomfort of the monitor. She tried calling cardiology, but there advised her to come to an urgent care to be evaluated. No evidence of anaphylaxis or bacterial etiology of the rash. Rash appears to be contact dermatitis. I feel that given the level of discomfort patient is having with the monitor, we will keep the device off. Will order kenalog and triamcinolone cream. I instructed her to call her cardiology office and describe to them what happened and that she is no longer wearing the device. Given strict return precautions. [facility] Other 09-29-2023 Evaluation note* Encounter Date Diagnosis Assessment Notes Treatment Notes Treatment Clinical Notes Mar, Hypothyroidism, unspecified (ICD-10 - E03.9) [facility] Other 09-28-2023 Evaluation + Plan note Future Scheduled Tests Radiology* Echo Transthoracic Complete 03/28/23 [facility]05-30-2023 Evaluation + Plan note Diagnostic Tests Pending * T3 Free 11/27/22 [facility]05-30-2023 Evaluation note* Encounter Date Diagnosis Assessment Notes Treatment Notes Treatment Clinical Notes October, Seizure (ICD-10 - R56.9) Lengthy discussion with patient today that her symptoms certainly would indicate potential seizure. The fact that she most likely had a postictal state does make me concerned, and I would strongly recommend that she see neurology for review. She voices agreement and understanding. Certainly if this is to happen again she is really should go to the ER, which did not do at the time of this incident. October, Syncope and collapse (ICD-10 - R55) Etiology unclear. She really did not have any changes or concerns at that time. We will pursue some blood work but also await neurology. No doubt they would want to pursue an EEG. October, Hypothyroid (ICD-10 - E03.9) Labs printed. We will pursue recheck on her thyroid, as we did make a change to her thyroid medication in the fall. We will call her with results. October, Chronic fatigue (ICD-10 - R53.82) We will call with results of the blood work. October, Vitamin D deficiency (ICD-10 - E55.9) We will call with results of the blood work. [facility] Other 03-24-2023 Evaluation note* Encounter Date Diagnosis Assessment Notes Treatment Notes Treatment Clinical Notes Aug, Hypothyroidism, unspecified (ICD-10 - E03.9) [facility] Other 12-01-2022 Evaluation note* Encounter Date Diagnosis Assessment Notes Treatment Notes Treatment Clinical Notes May, Hypothyroidism, unspecified (ICD-10 - E03.9) [facility] Other 05-03-2022 Evaluation note* Encounter Date Diagnosis Assessment Notes Treatment Notes Treatment Clinical Notes October, Pain in right shoulder (ICD-10 - M25.511) Discussed with great length that I am unclear as to the exact causation behind these concerns with her shoulders. Because physical therapy was helpful historically, I think we should go that route again. If this is of no benefit, or symptoms worsen, then we can try to proceed with referral back to orthopedics or potentially sports medicine. She voices agreement and understanding. October, Pain in left shoulder (ICD-10 - M25.512) [facility] Other 01-05-2022 Evaluation note* Encounter Date Diagnosis Assessment Notes Treatment Notes Treatment Clinical Notes Jul, Close exposure to COVID-19 virus (ICD-10 - Z20.828) [facility] Other 11-03-2021 Evaluation note* Encounter Date Diagnosis Assessment Notes Treatment Notes Treatment Clinical Notes May, Left wrist pain (ICD-10 - M25.532) Lengthy discussion with patient today that based on the injury pattern I think we should go ahead with imaging. If the x-ray is negative, this most likely represents a strain/sprain. She voices agreement. We will call her with results. May, Other Since tiame nt seen to her sinus concerns, we will simply continue to monitor. [facility] [place] Other Evaluation + Plan note No data available for this section [facility] Future Appointments Appointment Date:05/16/2023 01:15:00 PM Scheduled Provider:Elida DEMPSEY, Narinder Champion [facility] [place] Appointment Type:Cardiology Follow Up (FT) Future Scheduled Tests Radiology* Echo Transthoracic [facility] Future Appointments Appointment Date:05/21/2023 12:30:00 PM Scheduled Provider: Location:.[facility] Appointment Type:US Breast (FT) Appointment Date:05/21/2023 01:15:00 PM Scheduled Provider: Location[facility] Appointment Type:MA Diagnostic (FT) Future Scheduled Tests Radiology* US Breast Unilateral Lt Complete 05/21/23 * Echo Transthoracic Complete 03/28/23 * MA Mamm Diag w/CAD if perf and 3D LT 05/21/23 [facility] noteNo [facility] [place] Other Evaluation noteNo assessment information available [facility] Work Phone: History general Narrative - Reported* Type Description Date Medical History Asthma Medical History ADHD Medical History Hypothyroid Medical History GERD Medical History 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 Medical History right foot fracture - no surgery Surgical History T+A childhood Surgical History D&C 03/2021 Hospitalization History Asthma Hospitalization History Pneumonia [facility] [place] Other Hospital Discharge instructions No data available for this section [facility] Name Dates Details Instructions not documented [id number] Work Phone: Progress note No data available for this section [facility] Summary Purpose Family History Grandmother Name Dates Details Family history of fibromyalg ia(V17.89, Z82.69) Status:Active Mother Name Dates Details No pertinent family history( V49.89, Z78.9) Status:Active Father Name Dates Details No pertinent family history( V49.89, Z78.9) Status:Active Relationship Condition Age at Onset Recorded Date/T rodo Not Specified Diabetes mellitus Unknown Heart disease Unknown Leukemia Unknown Advance Directives Advance Directive Response Recorded Date/ Time Advance Directives No April 03, 2017 6:58pm Advance Directive Response Recorded Date/ Time Advance Directives No April 03, 2017 5:58pm Chief Complaint and Reason for Visit Chief Complaint Shoulder pain Chief Complaint labs Additional Source Comments INFORMATION SOURCE (unrecogn ized section and content) DATE CREATED AUTHOR 12/20/2017 [facility] DATE CREATED AUTHOR AUTHOR'S ORGANIZ ATION 08/26/2020 [facility] DATE CREATED AUTHOR AUTHOR'S ORGANIZ ATION 06/12/2022 [facility] DATE CREATED AUTHOR AUTHOR'S ORGANIZ ATION 06/02/2023 [facility] REASON FOR VISIT (unrecogniz ed section and content) Sinus congestion, sore throa t- negative covid.. left wrist pain x 1 weekCOVID test requestrefill duleraClinical Acute MedicineClinical Acute Illness6 month Follow up, pt says she was told years ago that she would have issues with her shoulders going forward_ _ told her she's double jointed in all joints EXCEPT shoulders_ _- last few months- the pain is very sharp, feels like it's grinding- right one worse- was in [facility] 07/26 and her right shoulder has been worse since then- no ERThyroid resultsrefill synthroidrefill synthroidcdss alert- smoking6 month Follow up, pt says a few months ago she was having really bad fainting spells one day and her boyfriend found her seizing on her floor.. she is unsure of how long she was seizing- it was about 3-4 minutes once he was there- she says she's never had seizures before this and nothing since, but does report still having small fainting episodes _ _ has never been to ER for any of these episodes, for the 'fainting spells she feels very dizzy and feels a head vela and has to sit down or she'll faintNeurology ReferralLab resultsrefill vitamin Drefill synthroidrefill synthroidLeft Breast Lump- tender upon palpation (noticed the pain 1 month ago), pt reports urgent care yesterday- had allergic reaction to the holter monitor adhesive- currently seeing cardio and neuro- neuro is because of the passing out/ seizures- was sent to cardio per neuro for family hx of heart- resting heart is high 90'smammo orderAllergic reaction6 month Follow up, has had a cold for almost a week, but feeling improved, left breast lump is gone now, no complaintstsh results/ med increase6 month Follow up, has had a cold for almost a week, but feeling improved, left breast lump is gone now, no complaintsweight error/ requestrefill vitamin drefill synthroid 200 mcg Care Teams (unrecognized sec tion and content) Team Status: Inactive Member Role Status Dates Richie Dickerson DO Primary Care Provider, Attending Provider Active Team Status: Active Member Role Status Dates Richie Dickerson , DO Primary Care Provider Active Goals (unrecognized section and content) Goals may be documented in a n alternate section FOR RECORDS PERTAINING TO PATIENTS WHO ARE OR HAVE BEEN ENROLLED IN A CHEMICAL DEPENDENCY/SUBSTANCEABUSE PROGRAM, SOME INFORMATION MAY BE OMITTED. This clinical summary was aggregated from multiple sources. Caution should be exercised in using it in the provision of clinical care. This summary normalizes information from multiple sources, and as a consequence, information in this document may materially change the coding, format and clinical context of patient data. In addition, data may be omitted in some cases. CLINICAL DECISIONS SHOULD BE BASED ON THE PRIMARY CLINICAL RECORDS. [employer] [facility]. provides no warranty or guarantee of the accuracy or completeness of information in this document.
== END 2023-08-12 19:48 | disposition home or self-care (01) ==
LOC: SLEEP 19:47
PROVIDERS: PCP Nurse Practitioner Family; Visit Provider Nurse Practitioner Family
DX: G47.33 Obstructive sleep apnea (adult) (pediatric) (principal); G47.11 Idiopathic hypersomnia with long sleep time; G47.50 Parasomnia, unspecified
CPT/HCPCS: 95810

== ENCOUNTER 2024-01-27 19:32 | Emergency (ER) | payer BC, SELFPAY ==
--- OUTSIDE RECORDS SUMMARY | 2024-01-27 19:38 | XMS_ITS | CCD ---
Author Organization [facility] Care Team Providers Care Trimmer Helper Name Role Phone Jeffery Farr Unavailable Unavailabl Lidia Tao Unavailable Unavailable Lidia Zuniga Unavailable Unavailable JOHANNA REED PA-C Attending Un available Lidia Zuniga Unavailable Unavailable Yumiko Martinez Unavailable Unavailable Jia DEMPSEY, Jeffery Unavailable Un available TUAN, RICHIE Ham Primary Care Physician Tuan Richie Unavailable Tuan, DO Richie Ham. Primary Care Provider Tuan, DO Richie Ham. Attending Provider Tuan, DO Richie Ham. Primary Care Provider Tuan, DO Richie Ham. Attending Provider Tuan, Richie Ham. Attending Unavailable TuanRichie. Admitting Unavailable Tuan, Richie Jitendra. Primary Care Unavailable Tuan, Richie Ham. Primary Care Unavailable Tuan, Richie Ham. Attending Unavailable Tuan, Richie Ham. Admitting Unavailable Tom Bales Unavailable Tuan DO, Richie Bautista Primary Care Provider Lesly vailable LINDA UMANA Attending Unavailable TUANRICHIE Referring Unavailable TUAN, RICHIE BAUTISTA Primary Care Unavailable JEFFERY JAEGER Referring Unavailable Narinder Marrero Admitting Unavaila ble Narinder Marrero Attending Unavaila ble TUAN, RICHIE M Admitting Unavailable TUAN, RICHEI M Attending Unavailable TUAN, RICHIE M Referring Unavailable TUAN, RICHIE M Admitting Unavailable TUAN, RICHIE M Attending Unavailable NONE, XXXX Referring Unavailable Narinder Marrero Attending Unavaila ble NONE, XXXX Referring Unavailable MD Tobi López Attending Unavailable Allergies Allergy Classification Reported Allergen(s) Allergy Type Date of Onset Reaction(s) Facility Dairy (not specified as lactose intolerance) (1 source) cow milk Food Allergy [facility] [place] [address] Work Phone: Unclassified (1 source) Animal dander - Cats Allergy to substance (finding) [facility] [place] [address] Work Phone: Unclassified (1 source) Animal dander - Dogs Allergy to substance (finding) [facility]xss[facility] [place] [address] Work Phone: (2 sources) No Known Medication Allergies; Translations: [No Known Medication Allergies] Propensity to adverse reactions to drug (disorder) [facility] Repository (8 sources) Bee/Wasp/Ant venom; Translations: [Bee Stings] Drug allergy Hives [facility] (8 sources) Cat; Translations: [Cats] Drug allergy Sneezing (finding) [facility] (10 sources) Citric Acid; Translations: [citric acid] Drug Allergy 4 Swelling [facility] (8 sources) Dairy; Translations: [Dairy] Drug allergy Upset stomach (finding) [facility] (20 sources) Citric Acid-D Gluconic Acid Drug allergy Throat Swes [employer] Other (2 sources) cow milk allergenic extract; Translations: [MILK] Drug Allergy 4 Unknown [facility] Work Phone: (2 sources) Dog Dander; Translations: [DOG DANDER] Allergy to substance 4 Unknown [facility] Work Phone: Medications Current Medications Medication Drug Class(es) Dates Sig (Normalized) Sig (Original) acetaminophen 325 mg oral tablet (20 sources) Start: 11-15-2023 take 1 tablet by mouth every four hours Acetaminophen (Tylenol) 325 mg tablet Active 325 MG PO Every 4 hours November 15, 2023 12:00am take 1 tablet by mouth every fou r hours Tylenol 325 MG 1 tablet as needed Orally every 4 hrs Active [id number] 200 actuat albuterol 0.09 mg/actuat metered dose inhaler (20 sources) beta2-Adrenergic Agonist Start: 11-15-2023 take 0.63 mg by inhalation every four hours Albuterol Sulfate Active 0.63 MG INHALATION Every 4 hours November 15, 2023 12:00am Start: 11-15-2023 take 1 puff(s) by in halation every four hours Albuterol Sulfate (Proair Hfa) 90 mcg/actuation HFA aerosol inhaler Active 2 PUFF INHALATION Every 4 hours November 15, 2023 12:00am Start: 09-23-2018 albuterol 0.63 mg/3 mL (0.021%) [...] oral tablet (20 sources) Histamine-1 Receptor Antagonist Start: 11-15-2023 take 1 tablet by mouth once daily Cetirizine (Zyrtec) 10 mg tablet Active 10 MG PO Daily November 15, 2023 12:00am take 1 tablet by ines th every twenty-four hours ZyrTEC Allergy 10 MG 1 tablet Orally Once a day Active cholecalciferol 1.25 mg oral capsule (14 sources) Vitamin D Start: 11-15-2023 take 1250 ug by mouth every week Cholecalciferol (Vitamin D3) Active 1250 MCG PO every week November 15, 2023 12:00am take 1 capsule by mouth every we ek Vitamin D3 1.25 MG (70847 UT) 1 capsule Orally Once a week for 30 days Active doxepin hydrochloride 10 mg oral capsule (2 sources) Tricyclic Antidepressant Start: 12-26-2023 take 1-2 capsules by mouth once daily at bedtime doxepin 10 mg Cap TAKE 1 - 2 CAPSULES BY MOUTH EVERYDAY AT BEDTIME Start Date: 12/26/23 Status: Ordered Start: 12-02-2023 take 3 mg by mouth o nce daily at bedtime Doxepin Active 3 MG PO Daily at bedtime December 02, 2023 12:00am Dulera 100 mcg-5 mcg/inh inhalation aerosol (6 sources) Start: 10-12-2020 take 2 puff(s) by inhalation twice daily Dulera 100 mcg-5 mcg/inh inhalation aerosol 2 puff(s), Inhalation, BID, Asthma Start Date: 10/12/20 Status: Ordered 120 actuat formoterol fumarate 0.005 mg/actuat / mometasone furoate 0.1 mg/actuat metered dose inhaler (20 sources) Corticosteroid, beta2-Adrenergi c Agonist Start: 08-17-2020 take 2 puff(s) by inhalation twice daily Dulera 100 mcg-5 mcg/inh inhalation aerosol 2 puff(s), Inhalation, BID, Asthma Start Date: 10/12/20 Status: Ordered take 2 puff(s) by mouth twice da keren Dulera 100-5 MCG/ACT TAKE 2 PUFFS BY MOUTH TWICE A DAY for 30 Active levothyroxine sodium 0.075 mg oral tablet (20 sources) l-Thyroxine Start: 10-08-2023 take 1 tablet by mouth once daily Levothyroxine Active 0 .ROUTE .COMPLEX October 08, 2023 2:49pm TAKE 1 TABLET BY MOUTH ONCE A DAY, IN ADDITION TO 200MCG FOR A TOTAL OF 275MCG DAILY Start: 10-08-2023 take 1 tablet by ines th once daily Levothyroxine Active 0 .ROUTE .COMPLEX October 08, 2023 2:49pm TAKE 1 TABLET BY MOUTH EVERY DAY FOR 90 DAYS Start: 10-08-2023 End: 10-08-2023 take 200 ug by mouth once daily Levothyroxine Disconti nued 200 MCG PO Daily October 08, 2023 12:00am October 08, 2023 2:50pm Start: 10-08-2023 End: 10-08-2023 take 75 ug by mouth once daily Levothyroxine Discontin ued 75 MCG PO Daily October 08, 2023 12:00am October 08, 2023 2:50pm Start: 05-30-2022 take 1 tablet by ines once daily in the morning Levothyroxine Sodium 50 MCG 1 tablet in the morning on an empty stomach Orally Once a day in addition to 200mcg for a total of 250mcg daily for 30 days May, Active Start: 05-30-2022 take 1 tablet by ines th once daily in the morning Levothyroxine Sodium 25 MCG 1 tablet in the morning on an empty stomach Orally Once a day in addition to 200mcg for a total of 225mcg daily for 30 day(s) May, Active Start: 09-02-2019 End: 10-08-2023 take 175 ug by mouth once daily Levothyroxine Disconti nued 175 MCG PO Daily September 02, 2019 1:00am October 08, 2023 10:29am Start: 10-03-2018 take 200 ug by mouth [...] days Active loratadine 10 mg oral tablet (3 sources) Start: 09-07-2019 take 1 tablet by mouth once daily Loratadine (Claritin) 10 mg Tablet Active 10 MG PO Daily September 07, 2019 12:00am melatonin 5 mg oral tablet (9 sources) Start: 10-03-2020 take 1 tablet by mouth once daily at bedtime as needed melatonin 5 mg oral tablet 5 mg = 1 tab(s), Oral, Once a day (at bedtime), PRN for insomnia, # 60 tab(s), Refills(s) 0 Start Date: 10/03/20 Status: Ordered Start: 09-07-2019 End: 12-02-2023 take 10 mg by mouth at bedtime Melatonin Discontinued 10 MG PO Bedtime September 07, 2019 12:00am December 02, 2023 1:03pm Mometasone-Formoterol (1 source) Start: 11-15-2023 take 1 puff(s) by inhalation twice daily Mometasone-Formoterol Active 2 PUFF INHALATION Twice daily November 15, 2023 12:00am montelukast 10 mg oral tablet (9 sources) Leukotriene Receptor Antagonist Start: 03-13-2013 take 1 tablet by mouth once daily Montelukast (Singulair) 10 mg Tablet Active 10 MG PO Daily March 22, 2021 12:00am Multivitamins with Folic Acid 0.8 mg oral [...] Active triamcinolone acetonide 1 mg/ml topical cream (19 sources) Corticosteroid Start: 11-15-2023 Triamcinolone Acetonide Active 1 APPLIC TOPICAL Twice daily November 15, 2023 12:00am Start: 04-29-2023 Triamcinolone Acetonide 0.1 % 1 application Externally Twice a day for 10 days Mar, Active Start: 04-29-2023 Triamcinolone Acetonide 0.1 % 1 application Externally Twice a day for 10 days Mar, Active Start: 04-29-2023 Kenalog-40 Mar, 60 mg Ventolin HFA 90 mcg/inh inhalation aerosol with adapter (7 sources) Start: 09-23-2018 take 2 puff(s) by [...] TID, # 15 tab(s), Refills(s) 0, Pharmacy: [facility] [id number] [facility], 172.2, cm, 12/02/20 7:41:00 EDT, Height/Length Dosing, 58.8, kg, 12/02/20 7:41:00 EDT, Weight Dosing Start Date: 12/02/20 Status: Ordered Start: 11-02-2020 End: 11-05-2020 take 1 tablet by mouth three times daily as needed for nausea Zofran ODT 4 mg Tab-Dis 4 mg = 1 tab(s), Oral, TID, PRN Nausea, PRN N/V, # 8 tab(s), Refills(s) 0, Pharmacy: [facility] [id number] [facility], 173, cm, 11/02/20 16:02:00 EDT, Height/Length Dosing, 58, kg, 11/02/20 16:02:00 EDT, Weight Dosing Start Date: 11/02/20 Stop Date: 11/05/20 Status: Ordered Completed/Discontinued Medications Medication Drug Class(es) Dates Sig (Normalized) Sig (Original) acetaminophen 325 mg / oxyCODONE hydrochloride 5 mg oral tablet (3 sources) Opioid Agonist Start: 03-24-2021 End: 04-15-2021 take 1 tablet by mouth every six hours Oxycodone-Acetamin ophen (Percocet) 5-325 mg tablet Discontinued 1 TAB PO Q6H 8 2 March 24, 2021 April 15, 2021 6:28pm amoxicillin 875 mg oral tablet (3 sources) Penicillin-class Antibacterial Start: 09-07-2019 End: 03-22-2021 take 1 tablet by mouth twice daily Amoxicillin Discontinued 1 TAB PO Twice daily September 07, 2019 12:00am March 22, 2021 6:08am amoxicillin 875 mg / clavulanate 125 mg oral tablet (3 sources) Penicillin-class Antibacterial Start: 03-24-2021 End: 04-15-2021 take 1 tablet by mouth every twelve hours Amoxicillin-Pot Clavulanate (Augmentin) 875-125 mg tablet Discontinued 1 TAB PO Q12H March 24, 2021 12:00am April 15, 2021 6:28pm cephalexin 500 mg oral capsule (3 sources) Cephalosporin Antibacterial Start: 05-06-2019 End: 09-02-2019 take 1 capsule by mouth twice daily Cephalexin (Keflex) 500 mg capsule Discontinued 500 MG PO Twice daily 04 04May 06, 2019 1:00am September 02, 2019 6:23am 60 actuat fluticasone propionate 0.25 mg/actuat / salmeterol 0.05 mg/actuat dry powder inhaler (1 source) Corticosteroid, beta2-Adrenergic Agonist Start: 03-31-2013 Advair Diskus 250-50 MCG/DOSE Inhalation Aerosol Powder Breath Activated Quantity: 60 Refills: 0 Start : 31-Mar-2013 Active ibuprofen 600 mg oral tablet (3 sources) Nonsteroidal Anti-inflammatory Drug Start: 09-02-2019 End: 03-22-2021 Ibuprofen Discontinued 600 MG PO Every 6 hours September 02, 2019 1:00am March 22, 2021 6:09am do not exceed 4 doses in a 24 hour period metroNIDAZOLE 500 mg oral tablet (3 sources) Nitroimidazole Antimicrobial Start: 03-24-2021 End: 04-15-2021 take 1 tablet by mouth every eight hours Metronidazole (Flagyl) 500 mg tablet Discontinued 500 MG PO Q8H 30 March 24, 2021 12:00am April 15, 2021 6:28pm ondansetron 4 mg disintegrating oral tablet (3 sources) Serotonin-3 Receptor Antagonist Start: 03-24-2021 End: 04-15-2021 take 4 mg by mouth four times daily Ondansetron Discontinued 4 MG PO Four times daily March 24, 2021 12:00am April 15, 2021 6:28pm penicillin v potassium 500 mg oral tablet (3 sources) Start: 09-07-2019 End: 03-22-2021 take 2 tablets by mouth twice daily Penicillin V Potassium Discontinued 2 TAB PO Twice daily September 07, 2019 12:00am March 22, 2021 6:08am Problems Active Problems Problem Classification Problem Date Documented Date Episodic/Chronic Abdominal pain (3 sources) Abdominal pain; Translations: [Unspecified abdominal pain] 03-23-2021 Episodic Allergic reactions (2 sources) Hypersensitivity reaction caused by food; Translations: [Allergy to milk products] Episodic Anxiety disorders (19 sources) Anxiety; Translations: [Anxiety disorder, unspecified] Chronic Asthma (20 sources) Asthma; Translations: [Asthma, unspecified type, unspecified] 10-03-2020 Chronic Cardiac dysrhythmias (1 source) Tachyarrhythmia ; Translations: [Tachycardia, unspecified] Onset: 12-26-2023 Episodic Conditions associated with dizziness or vertigo (3 sources) Lightheadedness; Translations: [Dizziness and giddiness] 05-06-2019 [...] Translations: [Raynaud's syndrome] Chronic Other complications of (7 sources) Hypothyroidism in 10-03-2020 Episodic Other female genital disorders (20 sources) Vaginal bleeding; Translations: [Abnormal uterine and vaginal bleeding, unspecified] Chronic Other hematologic conditions (1 source) H/O: blood disorder; Translations: [Personal history of unspecified disease] Episodic Other injuries and conditions due to external causes (1 source) Injury of wrist; Translations: [Elbow, forearm, and wrist injury] Episodic Other and delivery including normal (7 sources) Normal 10-03-2020 Episodic Other skin disorders (1 source) Rash and other nonspecific skin eruption Episodic Other upper respiratory disease (3 sources) Bleeding from nose; Translations: [Epistaxis] Onset: 10-30-2023 10-30-2023 Episodic Other upper respiratory disease (2 sources) Epistaxis; Translations: [Epistaxis (Nose Bleed)] Onset: 10-29-2023 Episodic Other upper respiratory infections (6 sources) Streptococcal sore throat; Translations: [Streptococcal pharyngitis] 09-07-2019 Episodic Residual codes; unclassified (2 sources) History of clinical finding in subject; Translations: [Personal history of other specified diseases] Episodic Residual codes; unclassified (7 sources) Down's child in family 10-03-2020 Episodic Residual codes; unclassified (7 sources) Family history of cystic fibrosis 10-03-2020 Episodic Residual codes; unclassified (20 sources) Difficulty sleeping ; Translations: [Sleep disorder, unspecified] Episodic Residual codes; unclassified (3 sources) Family history of Raynaud phenomenon; Translations: [Family history of ischemic heart disease and other diseases of the circulatory system] 07-08-2017 Episodic Screening and history of mental health and substance abuse codes (2 sources) H/O: psychiatric disorder; Translations: [Personal history of other mental disorders] Episodic Sprains and strains (3 sources) Shoulder strain; Translations: [Strain of unspecified muscle, fascia and tendon at shoulder and upper arm level, unspecified arm, initial encounter] 12-28-2019 Episodic Syncope (4 sources) Syncope; Translations: [Syncope and collapse] 04-15-2021 Episodic Thyroid disorders (20 sources) Hypothyroidism; Translations: [Unspecified acquired hypothyroidism] Onset: 05-30-2022 09-23-2018 Chronic Unclassified (1 source) Pain in right shoulder; Translations: [Pain in right shoulder] Onset: 12-25-2021 Urinary tract infections (3 sources) Urinary tract infectious disease; Translations: [Urinary [...] shoulder Onset: 10-31-2021 Resolved: 10-31-2021 Episodic Unclassified (7 sources) Onset: 07-16-2020 Resolved: 10-03-2020 10-10-2020 Viral infection (1 source) Disease caused by 2019-nCoV; Translations: [COVID-19] NEGATED: Highlighted row has not occurred!Residual codes; unclassified (1 source) Disease Episodic Results Test Name Value Interpretation Reference Range Facility Heart and Vascular Office/Cl in Noteon 12-26-2023 Heart and Vascular Office/Clinic Note [facility] V[facility] Office/Clinic Note Chief Complaint 6 month F/U History of Present Illness The patient is a pleasant 23-year-old female who presents for follow-up appointment. She was seen in the past by Dr. Marrero due to sinus tachycardia, which was felt to be potentially inappropriate. It was also felt this might be related to thyroid issues. She presents today with no specific complaints, besides occasional palpitations. Denies syncope or presyncope, chest pain or shortness of breath. Review of Systems PHQ Score Initial Depression Screen Score: 0 SCORE ROS - Provider Constitutional: no fever, no chills, no fatigue Skin:no rash, no lesions ENMT: no ear pain, no sore throat, no congestion. Respiratory: no shortness of breath, no cough, no wheezing. Cardiovascular: no chest pain, yes palpitations, no edema. Gastrointestinal: no nausea, no vomiting, no diarrhea, no GI bleeding. Genitourinary: no dysuria, no frequencyno hematuria Musculoskeletal: no back pain, no trauma. Neurologic: no headache, no dizziness, no numbness, no weakness. Psychiatric: no sleeping problems, no irritability, no mood swings/depression. Heme/Lymph: no bleeding tendency, no bruising tendency, no petechiae, Allergy/Immuno logic: no seasonal allergies, no food allergies, no recurrent infections Physical Exam Vitals & Measurements HR: 82(Peripheral) RR: 16 BP: 120/80 SpO2: 97% HT: 68 in HT: 172 cm WT: 70.2 kg WT: 154.44 lb BMI: 23.73 General: alert, no acute distress Neck: Supple, noJVD nocarotid bruit Cardiovascular: regular rate and rhythm, no murmur normal peripheral perfusion Respiratory: Lungs CTAB, respirations non labored Extremities: no edema left lower extremity. no edema right lower extremity Neurological: oriented x 4, LOC appropriate for age, speech normal Skin: Warm, dry, intact- no rash or concerning lesions Assessment/Plan 1. Tachycardia (R00.0: Tachycardia, unspecified) Sinus tachycardia. She reports no significant complaints. Sinus tachycardia might potentially be inappropriate. Likely, related to thyroid disorder. Given the overall patient's status, I do not feel any pharmacological intervention is necessary. Follow-up No qualifying data available As needed Problem List/Past Medical History Ongoing Asthma Family history of cystic fibrosis Family history of Down syndrome Hypothyroidism in Migraines Supervision of normal first in first trimester Historical Hypothyroid Procedure/Surgical History Colonoscopy, EGD (esophagogastroduod enoscopy) gastric outlet reduction, Myringotomy and drainage of middle ear, T and A (tonsillectomy and adenoidectomy) postoperative education. 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 Never Smokeless Tobacco Use:. Household tobacco concerns: Yes., 12/26/2023 Family History Bipolar: Sister. Schizophrenia: Sister. Normal [facility] Comment on above: Result Comment: Elec tronically Signed By: Maribel DEMPSEY, Tobi Jesus\.karan\Date and Time Signed: 12/26/23 08:03 EDT T3 Freeon 06-01-2023 Free T3 [Mass/Vol] 3.5 pg/mL Invalid Interpretation Code 2.0-4.4 [facility] Comment on above: Result Comment: Perf ormed at: [facility] [id number] PhD Erica Banks Performed By: #### 2 [id number] ####[facility] [address] [place] [address] CHEMISTRYOrdered By: SYSTEM SYSTEM on 05-31-2023 Free T4 [Mass/Vol] 0.83 ng/dL Normal 0.58 - 1. 64 ng/dL [facility] Remisol TSH Qn 6.13 m[IU]/L High 0.34 - 5.60 mcIU/mL [facility] Remisol Consent for Treatmenton Consent for Treatment [id number] B3#1.00TIFF Normal [facility] Free T4on 05-31-2023 Free T4 [Mass/Vol] 0.83 ng/dL Normal 0.58-1.64 [facility] Comment on above: Performed By: #### 2 [id number] ####[id number] [place] [address] Physician Orderon 05-31-2023 Physician Order [id number] 439#1.00TIFF Normal [facility] TSHon 05-31-2023 TSH Qn 6.13 m[IU]/L High 0.34-5.60 [facility] Comment on above: Performed By: #### 2 [id number] ####[facility] [address] [place] [address] Heart and Vascular Office/Cl inic Noteon 05-26-2023 Heart and Vascular Office/Clinic Note Chief Complaint [...] with voice recognition artificial intelligence software, specifically Sightly, Zolpy and or vLex. Substitutions may have occurred due to the inherent limitations of voice recognition and artificial intelligence software. Documentation services were performed after patient or guardian consented to allow [employer] to record this visit. GRAHAM regulatory affairs strategy specialist and provider reviewed before signing. GRAHAM: [...] 03/28/2023 Family History Bipolar: Sister. Schizophrenia: Sister. Normal [facility] Comment on above: Result Comment: Elec tronically Signed By: Elida DEMPSEY, Narinder Champion\.br\Date and Time Signed: 05/26/23 22:29 EST\.br\Electronically Co-Signed By: Ashley Rehman\.karan\Date and Time Co-Signed: 05/16/23 14:50 EST Consent for Treatmenton 05-02 Consent for Treatment [id number] AB#1.00TIFF Normal [facility] US Breast Unilateral Lt Comp leteon 05-21-2023 [...] M.D. Transcribed by: ROSARIO Technologist: MARLENE Anaya [facility] Physician Orderon 05-17-2023 Physician Order [id number]#1.00TIFF Normal [facility] Heart and Vascular Office/Cl inic Noteon 05-16-2023 [...] She underwent EEG and MRI done at [place]. She has thyroid issues. She has a [...] with voice recognition artificial intelligence software, specifically Sightly, Zolpy and or vLex. Substitutions may have occurred with voice recognition and artificial intelligence software. ATTESTATION: Documentation services were performed after patient or guardian consented to allow [facility] to record this visit. GRAHAM regulatory affairs strategy specialist and provider reviewed before signing. GRAHAM: Lynette Waters/Pasted by: Justa Gallardo. Follow-up No qualifying [...] mg oral tablet (more content not included)... Normal [facility] Comment on above: Result Comment: Elec tronically Signed By: Elida DEMPSEY, Narinder Champion\.br\Date and Time Signed: 05/16/23 13:46 EST\.br\Electronically Co-Signed By: Justa Gallardo.br\Date and Time Co-Signed: 03/28/23 17:31 EDT Echocardiographyon 3 Echocardiography [id number] 0#1.00TIFF [facility] Outside Cardiovascularon Outside Cardiovascular [id number] 2#1.00TIFF [facility] Physician Orderon 05-01-2023 Physician Order [id number] 9C#1.00TIFF [facility] Consent for Treatmenton 03-02 Consent for Treatment [id number] D0#1.00CD:127 [facility] Insurance Correspondenceon 0 03-28-2023 Insurance Correspondence [id number]#1.00CD:127 [facility] Physician Orderon 03-28-2023 Physician Order [id number] 47#1.00CD:127 [facility] Referrals Officeon 3 Referrals Office [id number] 384#1.00CD:127 [facility] CHEMISTRYOrdered By: SYSTEM SYSTEM on 11-27-2022 25-hydroxyvitamin D3 [Mass/Vol] 16.1 ng/mL Low 30.0 - 100.0 ng/mL [facility] Remisol Albumin [Mass/Vol] 4.5 g/dL Normal 3.3 - 5.0 gm/dL [facility] Remisol Albumin/Globulin [Mass ratio] 1.4 {ratio} Normal [...] 131 mL/min/1.73 m2 Normal >=59mL/min/1 .73 m2 [facility] S Globulin (S) [Mass/Vol] 3.2 g/dL [...] mg/mg Normal 10 - 20 [facility] Remisol HEMATOLOGYOrdered By: SYSTEM SYSTEM on 11-27-2022 Basophils/100 [...] 333.0 E9/L Normal 150.0 - 500.0 E9/L [facility] HemeAutoSS RBC (Bld) [#/Vol] 3.5 E12/L Low 4.3 - 5.9 E12/L [facility] HemeAutoSS WBC corrected for nucl RBC Auto (Bld) [#/Vol] 6.9 E9/L Normal 4.0 - 11.0 E9/L [facility] [employer] Comment on above: Result Comment: Slid e reviewed by ts . Free T4 (Free Thyroxine)on 07-30-2021 Free T4 [Mass/Vol] 0.53 ng/dL Low 0.61-1.12 [facility] Comment on above: Performed By: #### T 4F, TSH3, T3F #### [facility] [address] [place], [place] [id number] [facility] TSH DL <= 0.005 mIU/L QnOrde red By: Richie Dickerson on 05-30-2022 TSH Qn 17.12 m[IU]/L 0.45-5.33 [facility] Thyroid Stimulating Hormoneo n 05-30-2022 TSH Qn 17.12 m[IU]/L High 0.45-5.33 [facility] Comment on above: Result Comment: PERF ORMED BY: [place] [address] PATHOLOGIST HAND EDGE BANDER EVONNE BLAKE M.D. Performed By: #### T 4F, TSH3, T3F #### [facility] [address] [place], [place] [id number] [facility] Thyroxine (T4) free [Mass/vo lume] in Serum or PlasmaOrdered By: Richie Dickerson on 05-30-2022 Free T4 [Mass/Vol] 0.53 ng/dL 0.61-1.12 [facility] Triiodothyronine (T3) Freeon 05-30-2022 Triiodothyronine (T3) Free 4.76 pg/mL High 2.50-3.90 [facility] Comment on above: Result Comment: PERF ORMED BY: [facility] [address] [place] [address] PATHOLOGIST [employer] EDGE BANDER EVONNE BLAKE M.D. Performed By: #### T 4F, TSH3, T3F #### [facility] [address] Triiodothyronine (T3) Free [ Mass/volume] in Serum or PlasmaOrdered By: Richie Dickerson on 05-30-2022 Free T3 [Mass/Vol] 4.76 pg/mL 2.50-3.90 [facility] MICRO OTHER TESTSOrdered By: Moira Ramos on 07-05-2021 Rapid COV Int NEG Ctl Pass (07/05/21 9:48 AM) Normal [facility] Man Sero Rapid COV Int POS Ctl Pass (07/05/21 9:48 AM) Normal [facility] Man Sero SARS-CoV+SARS-CoV-2 (COVID-19) Ag IA.rapid Ql (Resp) Detected 1 *CRIT* (07/05/21 9:48 AM) Invalid Interpretation Code Not Detected [facility] [employer] Comment on above: Result Comment: no c all per new covid protocol XR wrist LT 2Von 05-03-2021 XR wrist LT 2V [facility] [employer] Other XR wrist LT 2V [facility] [employer] Other XR wrist LT 2V [facility]111 [facility] [employer] Other [place]R [place] 2[place] [address] No rt [employer] Other XR wrist LT 2V XRay Report [employer] Other XR wrist LT 2V Signed [employer] Other XR wrist LT 2V Patient: Trudy Devine MR#: [id number] [employer] Other XR wrist LT 2V 2640 [employer] Other XR wrist LT 2V : 2000 Acct:[id number] [employer] Other XR wrist LT 2V Age/Sex: 20 / F ADM Date: 05/03/21 [employer] Other XR wrist LT 2V Loc: XD Room: Type: [facility] [employer] Other XR wrist LT 2V Attending Dr: Richie Dickerson DO [employer] Other XR wrist LT 2V Ordering Provider: Richie Dickerson DO [employer] Other XR wrist LT 2V Date of Service: 05/03/21 [employer] Other XR wrist LT 2V XR/XR wrist LT 2V: Left wrist pain [employer] Other XR wrist LT 2V Copies to: Richie Dickerson [employer] Other XR wrist LT 2V LEFT WRIST - 2 views [employer] Other XR wrist LT 2V COMPARISON: None [facility] [employer] Other XR wrist LT 2V CLINICAL DATA: Patient fell a week ago roller skating and has pain at the medial left breast. [employer] Other XR wrist LT 2V AP and lateral views were obtained. There is no acute fracture or dislocation. There is no [employer] Other XR wrist LT 2V significant soft tissue swelling. [employer] Other XR wrist LT 2V XR/XR wrist LT 2V [employer] Other XR wrist LT 2V IMPRESSION: [employer] Other XR wrist LT 2V NO ACUTE BONY INJURY. [employer] Other XR wrist LT 2V Impression dictated by: Yaquelin Cueva M.D.05/03/2021 5:10 PM [employer] Other XR wrist LT 2V Dictation Location: [facility] [employer] Other XR wrist LT 2V Transcribed By: PWS 05/03/21 1710 [employer] Other XR wrist LT 2V Dictated By: Yaquelin Cueva MD 05/03/21 1709 [employer] Other XR wrist LT 2V Signed By: [employer] Other XR wrist LT 2V 05/03/21 1710 [employer] Other ED Clinical Summaryon 2020 ED Clinical Summary [address] [address] ED Clinical Summary Person [facility] Age[facility] 20 Years : 2000 Sex: Female PCP: Marital Status: Single Phone: Race: White Ethnicity: Not or Language: Tajik Visit Reason: Chest pain; Chest pain - Cardiac Acuity: 4 Enc Type: Emergency Med Service: Emergency Medicine Arrival: 08/22/2020 12:26:04 Discharge: 08/22/2020 13:44:00 LOS: 000 01:18 Checkin: 08/22/2020 12:26:04 Checkout: 08/22/2020 13:44:00 Dispo Type: Home or Self Care Address: [address] [place] [address] [place] [address] Provider Notes: Diagnosis: 1:Positive test; 2:Asthma flare [...] 12:35:48 Follow up: With: Address: When: Cait [address] [address] [phone] Business (1) Discharge Orders: Discharge Patient 08/22/20 13:20:00 EST, Discharge to Home, Self Return to Work/School 08/22/20 0:00:00 EST, 08/23/20 0:00:00 EST, 08/22/20 0:00:00 EST, Positive test Patient Education Information: Preparing for ; Using an Inhaler; , New Dx [employer] Poison Help line: . [facility] Hotline: [place] Tobacco Quit Line: [place], [place]) [address]: [phone] [facility] ([place], [place]) [address]: [phone] [facility] [address] [place], [place]: [phone] Normal [facility] ED Note-Physicianon 08-22-19 ED Note-Physician Chief Complaint Pt. reports chest pain starting around 1200 today. Hx. of asthma, used inhaler with no relief History of Present Illness The patient is a 20-year-old female presenting via EMS for evaluation of chest discomfort with the potential of a flare. 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 No rashes, cellulitis, or petechiae. [...] Johanna Azevedo PA-C 08/22/20 16:30 EST Normal [facility] Vital Signs Date Time Vital Sign Value Performing Clinician Mckenzie german 12-26-2023 07:47-0400 Diastolic blood pressure 80 mm[Hg] Tobi Antnus [facility] 12-26-2023 07:47-0400 Heart rate 82 /min Tobi Antnus [facility] 12-26-2023 07:47-0400 Respiratory rate 16 /min Tobi Antnus [facility] 12-26-2023 07:47-0400 SaO2% (BldA) [Mass fraction] 97 % Tobi Antnus [facility] 12-26-2023 07:47-0400 Systolic blood pressure 120 mm[Hg] Tobi Antnus [facility] 12-02-2023 13:07-0400 Body height 167.64 cm [facility] 12-02-2023 13:07-0400 Body mass index (BMI) [Ratio] 24.3 kg/m2 [facility] 12-02-2023 13:07-0400 Body temperature 97.1 [degF] [facility] 12-02-2023 13:07-0400 Body weight 68.49 kg [facility] 12-02-2023 13:07-0400 Diastolic blood pressure 70 mm[Hg] [facility] 12-02-2023 13:07-0400 Heart rate 75 /min [facility] 12-02-2023 13:07-0400 Respiratory rate 18 /min [facility] 12-02-2023 13:07-0400 SaO2% (BldA) [Mass fraction] 98 % [facility] 12-02-2023 13:07-0400 Systolic blood pressure 110 mm[Hg] [facility] 05-31-2023 08:30-0500 Body height 167.64 cm Richie Dickerson Other [employer] Other 05-31-2023 08:30-0500 Body mass index (BMI) [Ratio] 233.04 kg/m2 Richie Tuan Other [employer] Other 05-31-2023 08:30-0500 Body mass index (BMI) [Ratio] 23.24 kg/m2 Richie Tuan Other [employer] Other 05-31-2023 08:30-0500 Body temperature 98.9 [degF] Richie Tuan Other [employer] Other 05-31-2023 08:30-0500 Body weight 655 kg Richie Tuan Other [employer] Other 05-31-2023 08:30-0500 Body weight 65.32 kg Richie Tuan Other [employer] Other 05-31-2023 08:30-0500 Diastolic blood pressure 78 mm[Hg] Richie Tuan Other [employer] Other 05-31-2023 08:30-0500 Respiratory rate 20 /min Richie Tuan Other [employer] Other 05-31-2023 08:30-0500 SaO2% (BldA) [Mass fraction] 99 % Richie Tuan Other [employer] Other 05-31-2023 08:30-0500 Systolic blood pressure 124 mm[Hg] Richie Tuan Other [employer] Other 05-16-2023 13:07-0500 Diastolic blood pressure 72 mm[Hg] Narinder Marrero [facility] 05-16-2023 13:07-0500 Heart rate 91 /min Narinder Marrero [facility] 05-16-2023 13:07-0500 SaO2% (BldA) [Mass fraction] 100 % Narinder Marrero [facility] 05-16-2023 13:07-0500 Systolic blood pressure 112 mm[Hg] Narinder Marrero [facility] 04-30-2023 13:45-0400 Body height 167.64 cm Richie Tuan Other [employer] Other 04-30-2023 13:45-0400 Body mass index (BMI) [Ratio] 23.72 kg/m2 Richie Tuan Other [employer] Other 04-30-2023 13:45-0400 Body temperature 97 [degF] Richie Tuan Other [employer] Other 04-30-2023 13:45-0400 Body weight 66.68 kg Richie Tuan Other [employer] Other 04-30-2023 13:45-0400 Diastolic blood pressure 62 mm[Hg] Richie Tuan Other [employer] Other 04-30-2023 13:45-0400 Respiratory rate 20 /min Richie Tuan Other [employer] Other 04-30-2023 13:45-0400 SaO2% (BldA) [Mass fraction] 98 % Richie Tuan Other [employer] Other 04-30-2023 13:45-0400 Systolic blood pressure 122 mm[Hg] Richie Tuan Other [employer] Other 04-29-2023 12:50-0400 Body height 167.64 cm Tom Bales Other [employer] Other 04-29-2023 12:50-0400 Body mass index (BMI) [Ratio] 22.59 kg/m2 Tom Bales Other [employer] Other 04-29-2023 12:50-0400 Body temperature 98.4 [degF] Tom Bales Other [employer] Other 04-29-2023 12:50-0400 Body weight 63.5 kg Tom Bales Other [employer] Other 04-29-2023 12:50-0400 Diastolic blood pressure 86 mm[Hg] Tom Bales Other [employer] Other 04-29-2023 12:50-0400 Respiratory rate 20 /min Tom Bales Other [employer] Other 04-29-2023 12:50-0400 SaO2% (BldA) [Mass fraction] 98 % Tom Bales Other [employer] Other 04-29-2023 12:50-0400 Systolic blood pressure 122 mm[Hg] Tom Bales Other [employer] Other 03-28-2023 12:41-0400 Diastolic blood pressure 66 mm[Hg] Narinder Marrero [facility] 03-28-2023 12:41-0400 Heart rate 102 /min Narinder Marrero [facility] 03-28-2023 12:41-0400 SaO2% (BldA) [Mass fraction] 98 % Narinder Marrero [facility] 03-28-2023 12:41-0400 Systolic blood pressure 108 mm[Hg] Narinder Marrero [facility] 11-27-2022 08:30-0400 Body height 167.64 cm Richie Tuan Other [employer] Other 11-27-2022 08:30-0400 Body mass index (BMI) [Ratio] 23.08 kg/m2 Richie Tuan Other [employer] Other 11-27-2022 08:30-0400 Body temperature 97.4 [degF] Richie Tuan Other [employer] Other 11-27-2022 08:30-0400 Body weight 64.86 kg Richie Tuan Other [employer] Other 11-27-2022 08:30-0400 Diastolic blood pressure 70 mm[Hg] Richie Tuan Other [employer] Other 11-27-2022 08:30-0400 Respiratory rate 20 /min Richie Tuan Other [employer] Other 11-27-2022 08:30-0400 SaO2% (BldA) [Mass fraction] 98 % Richie Tuan Other [employer] Other 11-27-2022 08:30-0400 Systolic blood pressure 110 mm[Hg] Richie Tuan Other [employer] Other 10-31-2021 10:30-0400 Body height 167.64 cm Richie Tuan Other [employer] Other 10-31-2021 10:30-0400 Body mass index (BMI) [Ratio] 21.46 kg/m2 Richie Tuan Other [employer] Other 10-31-2021 10:30-0400 Body temperature 98.6 [degF] Richie Tuan Other [employer] Other 10-31-2021 10:30-0400 Body weight 60.33 kg Richie Tuan Other [employer] Other 10-31-2021 10:30-0400 Diastolic blood pressure 62 mm[Hg] Richie Tuan Other [employer] Other 10-31-2021 10:30-0400 Respiratory rate 20 /min Richie Tuan Other [employer] Other 10-31-2021 10:30-0400 SaO2% (BldA) [Mass fraction] 98 % Richie Tuan Other [employer] Other 10-31-2021 10:30-0400 Systolic blood pressure 108 mm[Hg] Richie Tuan Other [employer] Other 05-03-2021 14:45-0400 Body height 167.64 cm Richie Tuan Other [employer] Other 05-03-2021 14:45-0400 Body temperature 97.5 [degF] Richie Tuan Other [employer] Other 05-03-2021 14:45-0400 Diastolic blood pressure 68 mm[Hg] Richie Tuan Other [employer] Other 05-03-2021 14:45-0400 Respiratory rate 20 /min Richie Tuan Other [employer] Other 05-03-2021 14:45-0400 SaO2% (BldA) [Mass fraction] 95 % Richie Tuan Other [employer] Other 05-03-2021 14:45-0400 Systolic blood pressure 108 mm[Hg] Richie Tuan Other [employer] Other Encounters Encounter Date Encounter Type Care Provider Facility Start: 12-26-2023 End: 12-26-2023 ambulatory XXXX NONE Facility:[facility] Start: 12-26-2023 End: 12-26-2023 Patient encounter procedure Tobi López [facility] Start: 12-02-2023 End: 12-02-2023 ambulatory [facility] Work Phone: Start: 12-02-2023 End: 12-02-2023 Patient encounter procedure [facility] Work Phone: Start: 10-29-2023 End: 10-29-2023 ambulatory [facility] Start: 10-29-2023 End: 10-29-2023 Office outpatient new 30 minutes Linda Umana PA-C Work Phone: [facility] Comment on above: [employer] (Primary D x) Start: 10-08-2023 Non-patient / Non-visit [facility] Physician [facility] Work Phone: Start: 10-08-2023 Non-patient / Non-visit [facility] Work Phone: Start: 06-28-2023 End: 06-28-2023 ambulatory Richie Tuan Other [employer] Other Start: 06-28-2023 Telephone encounter Richie Tuan [facility] Start: 06-17-2023 End: 06-17-2023 ambulatory Richie Tuan Other [employer] Other Start: 06-17-2023 Telephone encounter Richie Tuan [facility] Start: 06-13-2023 End: 06-13-2023 ambulatory Richie Tuan Other [place] [employer] Other Start: 06-13-2023 Telephone encounter Richie Tuan [facility] Start: 06-07-2023 End: 06-07-2023 ambulatory Richie Tuan Other [employer] Other Start: 06-07-2023 Telephone encounter Richie Tuan [facility] Start: 05-31-2023 Office outpatient visit 15 minutes Richie Tuan [facility] Start: 05-31-2023 End: 05-31-2023 ambulatory RICHIE M TUAN [facility] Other Start: 05-31-2023 End: 05-31-2023 Patient encounter procedure RICHIE M TUAN [facility] Start: 05-21-2023 End: 05-21-2023 ambulatory RICHIE M TUAN Facility:[facility] Start: 05-21-2023 End: 05-21-2023 Patient encounter procedure RICHIE M TUAN [facility] Start: 05-16-2023 End: 05-16-2023 ambulatory XXXX NONE Facility:[facility] Start: 05-16-2023 End: 05-16-2023 Patient encounter procedure Narinder Marrero [facility] Start: 04-30-2023 End: 04-30-2023 ambulatory Richie Tuan Other [employer] Other Start: 04-30-2023 Office outpatient visit 15 minutes Richie Tuan [facility] Start: 04-30-2023 Telephone encounter Richie Tuan [facility] Start: 04-29-2023 End: 04-29-2023 ambulatory Tom Bales Other [employer] Other Start: 04-29-2023 Office outpatient visit 15 minutes Tom Bales [facility] Start: 03-29-2023 End: 03-29-2023 ambulatory Richie Tuan Other [employer] Other Start: 03-29-2023 Telephone encounter Richie Tuan [facility] Start: 03-28-2023 End: 03-28-2023 ambulatory JEFFERY JAEGER Facility:[facility] Start: 03-28-2023 End: 03-28-2023 Patient encounter procedure Narinder Marrero [facility] Start: 12-25-2022 End: 12-25-2022 ambulatory Richie Tuan Other [employer] Other Start: 12-25-2022 Telephone encounter Richie Tuan [facility] Start: 12-24-2022 End: 12-24-2022 ambulatory Richie Tuan Other [employer] Other Start: 12-24-2022 Telephone encounter Richie Tuan [facility] Start: 11-29-2022 End: 11-29-2022 ambulatory Richie Tuan Other [employer] Other Start: 11-29-2022 Telephone encounter Richie Tuan [facility] Start: 11-27-2022 End: 11-27-2022 ambulatory Richie Tuan Other [employer] Other Start: 11-27-2022 Office outpatient visit 25 minutes Richie Tuan [facility] Start: 11-27-2022 Telephone encounter Richie Tuan [facility] Start: 11-27-2022 End: 11-27-2022 Patient encounter procedure RICHIE M TUAN [facility] Start: 09-21-2022 End: 09-21-2022 ambulatory Richie Tuan Other [employer] Other Start: 09-21-2022 Telephone encounter Richie Tuan [facility] Start: 05-31-2022 End: 05-31-2022 ambulatory Richie Tuan Other [employer] Other Start: 05-31-2022 Telephone encounter Richie Tuan [facility] Start: 05-30-2022 Telephone encounter Richie Tuan [facility] Start: 05-30-2022 End: 05-30-2022 ambulatory Richie M. Tuan Facility:[facility] Start: 05-30-2022 End: 05-30-2022 ambulatory DO Richie M. Tuan Work Phone: [facility] Work Phone: Start: 05-30-2022 End: 05-30-2022 Patient encounter procedure DO Richie Tuan Work Phone: [facility] [place] Start: 12-25-2021 End: 12-25-2021 ambulatory Richie M. Tuan Facility:[facility] Start: 12-25-2021 End: 12-25-2021 Discharged Recurring DO Richie Tuan Work Phone: [facility] Start: 10-31-2021 End: 10-31-2021 ambulatory Richie Tuan Other [employer] Other Start: 10-31-2021 Office outpatient visit 15 minutes Richie Tuan [facility] Start: 10-05-2021 End: 10-05-2021 ambulatory Richie Tuan Other [employer] Other Start: 10-05-2021 Telephone encounter Richie Tuan [facility] Start: 10-03-2021 End: 10-03-2021 ambulatory Richie Tuan Other [employer] Other Start: 10-03-2021 Telephone encounter Richie Tuan [facility] Start: 07-10-2021 End: 07-10-2021 ambulatory Richie Tuan Other [employer] Other Start: 07-10-2021 Telephone encounter Richie Tuan [facility] Start: 07-05-2021 End: 07-05-2021 ambulatory Richie Tuan Other [employer] Other Start: 07-05-2021 Telephone encounter Richie Tuan [facility] Start: 07-05-2021 End: 10-03-2021 Recurring RICHIE M TUAN [facility] Start: 05-03-2021 End: 05-03-2021 ambulatory Richie Tuan Other [facility] Other Start: 05-03-2021 Office outpatient visit 15 minutes Richie Tuan [facility] Start: 08-22-2020 End: 08-22-2020 Emergency department patient visit JOHANNA REED Facility:[facility] Start: 08-29-2017 Ambulatory Jeffery Moseleytwyla Farr Fa cility:[id number] Procedures Date Procedure Procedure Detail Performing Clinician Colonoscopy RICHIE TUAN Education about post operative care after adenotonsillectomy RICHIE TUAN Esophagogastroduoden oscopy gastric outlet reduction RICHIE TUAN Fiberoptic colonoscopy Lidia Zuniga History of Myringotomy Lidia Zuniga Myringotomy and drainage of middle ear RICHIE TUAN Tonsillectomy and adenoidectomy Lidia Zuniga Plan of Treatment Date Care Activity Detail Author Start: 2051 Zoster Vaccines (1 of 2) Zoster Vaccines (1 of 2) [facility] Start: 03-01-2024 Influenza vaccination Influenza Vaccine (Season Ended) [facility] Start: 03-01-2023 COVID-19 Vaccine ( season) COVID-19 Vaccine ( season) [facility] Start: 09-25-2022 DTaP/Tdap/Td Vaccines (7 - Tdap) DTaP/Tdap/Td Vaccines (7 - Tdap) [facility] Start: 2022 Screening for malignant neoplasm of cervix [facility] Start: 2019 Hepatitis C screening Hepatitis C Screening [facility] Start: 2007 Pneumococcal Vaccine: Pediatrics (0 to 5 Years) and At-Risk Patients (6 to 64 Years) (1 of 2 - PCV) Pneumococcal Vaccine: Pediatrics (0 to 5 Years) and At-Risk Patients (6 to 64 Years) (1 of 2 - PCV) [facility] Start: 2001 HIV screening HIV Screening [facility] Start: 2001 Lipid panel Lipid Panel [facility] Start: 2001 Yearly Adult Physical Yearly Adult Physical [facility] Immunizations Immunization Date Immunization Notes Care Provider Fa cility 12-01-2020 COVID-19 mRNA-1273 (Moderna) DO Richie Tuan Work Phone: [facility] 11-01-2020 COVID-19 mRNA-1273 (Moderna) DO Richie Tuan Work Phone: [facility] 05-29-2017 influenza virus vaccine, unspecified formulation Linda Umana PA-C Work Phone: [facility] Work Phone: 05-28-2017 influenza, seasonal, injectable Richie Tuan Other [facility] NEGATED: Highlighted row has not occurred!05-12-2020 influenza, injectable, quadrivalent, contains preservative Patient Objection Richie Tuan Other [employer] Other NEGATED: Highlighted row has not occurred!05-19-2019 influenza, injectable, quadrivalent, contains preservative Richie Tuan Other [employer] Other NEGATED: Highlighted row has not occurred!03-17-2018 influenza, injectable, quadrivalent, contains preservative Richie Tuan Other [employer] Other Payers Date Payer Category Payer Unknown [id number] 2021 Self-pay [id number] 2021 Unknown [id number] 2020 Unknown 2000 Unknown [id number] 2000 Unknown [id number] .[id number] 2001 Unknown [id number] .727 2001 Unknown [id number] [id number] .727 2001 Unknown [id number] [id number] .727 2001 Unknown [id number] .727 2001 Unknown [id number] [id number] .727 Private Health Insurance [facility] [id number] Unknown Regular Insura-Liability [id number] Unknown [id number] .531 Unknown [id number] [id number] .531 Social History Date Type Detail Facility Assertion Tobacco smoking consumption unknown (finding) [facility] [address] Work Phone: Tobacco [facility] Comment on above: denies Sex Assigned At Female [employer] Other Start: 04-15-2021 End: 12-26-2023 Tobacco smoking status NHIS Never smoked tobacco (finding) [facility] Comment on above: patient has never sm oked, only her sign. other AQUILES Former smoker Start: 2000 Sex Assigned At Female [facility] Tobacco smoking status No Smoking Status Entered [facility] Tobacco smoking status Never [facility] Comment on above: patient has never sm oked, only her sign. other AQUILES Former smoker Tobacco smoking status NHIS Tobacco smoking consumption unknown [facility] Work Phone: Start: 2000 Sex assigned at Not on file U [facility] Work Phone: Start: 10-19-2023 End: 10-29-2023 Exposure to SARS-CoV-2 (event) Not sure [facility] Functional Status Date Assessment Result Facility 12-26-2023 Functional Status No [facility] 05-16-2023 Functional Status No [facility] 03-28-2023 Functional Status No [facility] NEGATED: Highlighted row Functional performance Functional status health issues are not documented Disease [facility] [address] Work Phone: Mental Status Date Assessment Result Facility NEGATED: Highlighted row Cognitive function [Interpretation] Cognitive status health issues are not documented Disease DR-[id number]-Zsbll chasity [address] Work Phone: Clinical Notes 05-03-2021 to 10-29-2023 Linda Umana PA-C - 10/29/2023 3:00 PM EDT Note Date & Type Note Facility 10-29-2023 History of Present illness Narrative Trudy Devine is a 23 y.o. year old female patient with Epistaxis (Nose Bleed) Patient presents to the office today for assessment of nose. Patient having right-sided epistaxis. She is here today for further assessment. All other ENT issues are negative. Review of Systems All other systems reviewed and are negative. Physical Exam: General appearance: No acute distress. Normal facies. Symmetric facial movement. No gross lesions of the face are noted. The external ear structures appear normal. The ear canals patent and the tympanic membranes are intact without evidence of air-fluid levels, retraction, or congenital defects. Anterior rhinoscopy notes essentially a midline nasal septum. Patient with prominent vessel identified right anterior septum. Examination is noted for normal healthy mucosal membranes without any evidence of lesions, polyps, or exudate. The tongue is normally mobile. There are no lesions on the gingiva, buccal, or oral mucosa. There are no oral cavity masses. The neck is negative for mass lymphadenopathy. The trachea and parotid are clear. The thyroid bed is grossly unremarkable. The salivary gland structures are grossly unremarkable. Procedure: Patient seen in the office today for assessment of epistaxis. Patient was sprayed with topical decongestant anesthetic spray with lidocaine and oxymetazoline. Following the patient was then cauterized with silver nitrate to the right anterior septum. Patient tolerated this well. Assessment/Plan 1. Epistaxis Patient with right-sided epistaxis now status post chemical cauterization. Recommendation at this time is observation and see us back should bleeding continue documented in this encounter [facility] Work Phone: 06-28-2023 Evaluation note Encounter Date Diagnosis Assessment Notes May, Hypothyroidism, unspecified (ICD-10 - E03.9) [facility] [employer] Other 12-08-2023 Evaluation note* Encounter Date Diagnosis Assessment Notes Treatment Notes Treatment Clinical Notes May, Hypothyroidism, unspecified (ICD-10 - E03.9) [facility] [employer] Other 12-01-2023 Evaluation + Plan note Diagnostic Tests Pending * T3 Free 05/31/23 Future Scheduled Tests Radiology* Echo Transthoracic Complete 03/28/23 [facility]12-01-2023 Evaluation note* Encounter Date Diagnosis Assessment Notes Treatment Notes Treatment Clinical Notes May, Hypothyroidism, unspecified (ICD-10 - E03.9) Lengthy discussion with patient today that since we made a change to her thyroid back in the spring, she has not completed any blood work. She states she will do this so this morning. Order printed. [facility] [employer] Other 10-31-2023 Evaluation note* Encounter Date Diagnosis Assessment Notes Treatment Notes Treatment Clinical Notes Mar, Subareolar mass of left breast (ICD-10 - N63.42) We will pursue imaging, mammogram, with ultrasound if needed. We will call her with results. We did talk about the potential of needing to see a general surgery or radiology for biopsy depending on results. [facility] [employer] [facility] [employer] Other 10-30-2023 Evaluation note* Encounter Date Diagnosis [...] wearing the device. Given strict return precautions. [facility] [employer] Other 09-29-2023 Evaluation note* Encounter Date Diagnosis Assessment Notes Treatment Notes Treatment Clinical Notes Mar, Hypothyroidism, unspecified (ICD-10 - E03.9) [employer] Other 09-28-2023 Evaluation + Plan note Future Scheduled Tests Radiology* Echo Transthoracic Complete 03/28/23 [facility]05-30-2023 Evaluation + Plan note Diagnostic Tests Pending * T3 Free 11/27/22 [facility]05-30-2023 Evaluation note* Encounter Date Diagnosis Assessment [...] call with results of the blood work. [facility] [employer] [facility] [employer] Other 03-24-2023 Evaluation note* Encounter Date Diagnosis Assessment Notes Treatment Notes Treatment Clinical Notes Aug, Hypothyroidism, unspecified (ICD-10 - E03.9) [facility] [employer] Other 12-01-2022 Evaluation note* Encounter Date Diagnosis Assessment Notes Treatment Notes Treatment Clinical Notes May, Hypothyroidism, unspecified (ICD-10 - E03.9) [facility] [employer] [facility] [employer] Other 05-03-2022 Evaluation note* Encounter Date Diagnosis [...] Pain in left shoulder (ICD-10 - M25.512) [facility] [employer] Other 01-05-2022 Evaluation note* Encounter Date Diagnosis Assessment Notes Treatment Notes Treatment Clinical Notes Jul, Close exposure to COVID-19 virus (ICD-10 - Z20.828) [facility] [employer] [facility] [employer] Other 11-03-2021 Evaluation note* Encounter Date Diagnosis Assessment Notes Treatment Notes Treatment Clinical Notes May, Left wrist pain (ICD-10 - M25.532) Lengthy discussion with patient today that based on the injury pattern I think we should go ahead with imaging. If the x-ray is negative, this most likely represents a strain/sprain. She voices agreement. We will call her with results. May, Other Since ayush nt seen to her sinus concerns, we will simply continue to monitor. [employer] [facility] Other Evaluation + Plan note No data available for this section [facility] Future Appointments Appointment Date:05/16/2023 01:15:00 PM Scheduled Provider:Elida DEMPSEY, Narinder Champion [facility] Appointment Type:Cardiology Follow Up (FT) Future Scheduled Tests Radiology* Echo Transthoracic [facility]28[facility]23 [facility] Future Appointments Appointment Date:05/21/2023 12:30:00 PM Scheduled Provider: Location:.[facility] Appointment Type:US Breast (FT) Appointment Date:05/21/2023 01:15:00 PM Scheduled Provider: Location:.[facility] Appointment Type:MA Diagnostic (FT) Future Scheduled Tests Radiology* US Breast Unilateral Lt Complete 05/21/23 * Echo Transthoracic Complete 03/28/23 * MA Mamm Diag w/CAD if perf and 3D LT 05/21/23 [facility] [place] Other Evaluation noteNo assessment information available [facility] Work Phone: Evaluation note* Diagnosis Epistaxis- Primary documented in this encounter [facility] Work Phone: History general Narrative - Reported* Type Description Date Medical History Asthma Medical History ADHD Medical History Hypothyroid Medical History GERD Medical History 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 Medical History right foot fracture - no surgery Surgical History T+A childhood Surgical History D&C 03/2021 Hospitalization History Asthma Hospitalization History Pneumonia [facility] [employer] Other Hospital Discharge instructions No data available for this section [facility] Name Dates Details Instructions not documented [id number] [address] Work Phone: Progress note No data available for this section [facility] Summary Purpose Family History No Family History Records Found Grandmother Name Dates Details Family history of fibromyalg ia(V17.89, Z82.69) Status:Active Mother Name Dates Details No pertinent family history( V49.89, Z78.9) Status:Active Father Name Dates Details No pertinent family history( V49.89, Z78.9) Status:Active Relationship Condition Age at Onset Recorded Date/T rodo Not Specified Diabetes mellitus Unknown Heart disease Unknown Leukemia Unknown Relationship Condition Age at Onset Recorded Date/T rodo Not Specified Diabetes mellitus Unknown Heart disease Unknown Leukemia Unknown brother Unknown grandparent Unknown Alzheimer's dementia Unknown Family history of mental disorder Unknown Not Specified Malignant neoplasm Unknown Advance Directives No Advanced Directives Records Found Advance Directive Response Recorded Date/ Time Advance Directives No April 03, 2017 6:58pm Advance Directive Response Recorded Date/ Time Advance Directives No April 03, 2017 5:58pm Chief Complaint and Reason for Visit Chief Complaint Shoulder pain Chief Complaint labs Chief Complaint Amb Documentation Amb Documentation 6 month f/u Additional Source Comments INFORMATION SOURCE (unrecogn ized section and content) DATE CREATED AUTHOR 12/20/2017 [facility] DATE CREATED AUTHOR AUTHOR'S ORGANIZ ATION 08/26/2020 [facility] DATE CREATED AUTHOR AUTHOR'S ORGANIZ ATION 06/12/2022 [facility] DATE CREATED AUTHOR AUTHOR'S ORGANIZ ATION 10/31/2023 [facility] DATE CREATED AUTHOR AUTHOR'S ORGANIZ ATION 12/27/2023 [facility] REASON FOR VISIT (unrecogniz ed section and content) Reason Comments Epistaxis (Nose Bleed) Care Teams (unrecognized sec tion and content) Team Status: Active Member Role Status Dates Richie Dickerson DO Primary Care Provider Active Team Status: Active Member Role Status Dates Richie Dickerson DO Primary Care Provider Active Start: October 08, 2023 Wayne Bloom LPN Attending Provider Active St art: October 08, 2023 Team Status: Active Member Role Status Dates Richie Dickerson DO Primary Care Provider Active Start: October 08, 2023 Heidi Ruth LPN Attending Provider Active S tart: October 08, 2023 Team Status: Inactive Member Role Status Dates Richie Dickerson DO Primary Care Provid er, Attending Provider Active Start: December 02, 2023 End: December 02, 2023 Team Status: Inactive Member Role Status Dates Richie Dickerson DO Primary Care Provider, Attending Provider Active Trimmer Helper Relationship Specialty Start Date End Date Richie Dickerson DO PCP - General Family Medicine 10/14/23 Goals (unrecognized section and content) Goals may [...] BE BASED ON THE PRIMARY CLINICAL RECORDS. [employer] [facility]. provides no warranty or guarantee of the accuracy or completeness of information in this document.
[2024-01-27 19:39] VITALS: BP 136/66; PULSE 73; TEMP 36.8; O2SAT 100; BMI 19.8
--- NOTE | 2024-01-27 20:00 | ED.GENADUL1 ---
HPI HPI - General Adult General Chief complaint: Headache Stated complaint: Nausea/Vomiting Time Seen by Provider: 01/27/24 19:39 Source: patient Mode of arrival: Wheelchair History of Present Illness HPI narrative: 23-year-old female presents to the emergency department for headache and nausea and vomiting. The headache started about 7 hours ago and its on the right frontal part of her head. No trauma fever or stiff neck. A few hours later she started vomiting. She has a history of these headaches. The pain is moderate to severe and continuous. She is accompanied by her mother. Related Data Home Medications ?Medication ?Instructions ?Recorded ?Confirmed levothyroxine 200 mcg tablet 200 mcg PO DAILY 01/13/23 01/27/24 (Euthyrox) mometasone-formoterol HFA 50 mcg-5 2 inh inhalation QID 01/13/23 01/27/24 mcg/actuation aerosol inhaler (Dulera) cetirizine 10 mg capsule (Zyrtec) 10 mg PO DAILY 01/27/24 01/27/24 cholecalciferol (vitamin D3) 1,250 01/27/24 mcg (50,000 unit) capsule doxepin 10 mg capsule 10 mg PO DAILY 01/27/24 01/27/24 triamcinolone acetonide 0.1 % applic topical 01/27/24 topical cream Previous Rx's ?Medication ?Instructions ?Recorded cyclobenzaprine 5 mg tablet 5 mg PO TID PRN muscle spasm #10 01/13/23 tabs Allergies Allergy/AdvReac Type Severity Reaction Status Date / Time No Known Drug Allergies Allergy Verified 02/27/23 08:08 Opioid HPI Opioid Management Most Recent Opioid Data: Last Pain Scale 5 01/27/24 21:16 Last ED Pain Assessment 01/27/24 21:16 Review of Systems ROS Narrative A ten point review of systems is negative except as noted above. PFSH PFSH Social History (System 02/27/23 @ 08:08 by Alicia Mckeon) Smoking status: Current some day smoker Exam Narrative Exam Narrative: Nurses note and vital signs reviewed and patient is not hypoxic. General: The patient appears well and in no apparent distress. Patient is resting comfortably on cart. Skin: Warm, dry, no pallor noted. There is no rash noted. Head: Normocephalic, atraumatic Eye: Normal conjunctiva, no drainage, EOMI. PERRL Ears, Nose, Mouth, and Throat: oral mucosa is moist. Nares patent. Cardiovascular: Regular Rate and Rhythm Respiratory: Patient is in no distress, no accessory muscle use, lungs are clear to auscultation, no wheezing, rales or rhonchi Back: non-tender GI: Soft and nontender Musculoskeletal: The patient has no evidence of calf tenderness, no pitting edema, symmetrical pulses noted bilaterally Neurological: Awake alert and oriented. Upper and lower extremity strength intact Psychiatric: Cooperative, tearful Constitutional Vital Signs, click to edit/add: Last Vital Signs Temp 98.3 F 01/27/24 19:39 Pulse 73 01/27/24 19:39 Resp 24 H 01/27/24 19:39 BP 136/66 01/27/24 19:39 Pulse Ox 100 01/27/24 19:39 O2 Del Method Room Air 01/27/24 19:39 Course Vital Signs Vital signs: Vital Signs Temperature 98.3 F 01/27/24 19:39 Pulse Rate 73 01/27/24 19:39 Respiratory Rate 24 H 01/27/24 19:39 Blood Pressure 136/66 01/27/24 19:39 Pulse Oximetry 100 01/27/24 19:39 Oxygen Delivery Method Room Air 01/27/24 19:39 Temperature 98.3 F 01/27/24 19:39 Pulse Rate 73 01/27/24 19:39 Respiratory Rate 24 H 01/27/24 19:39 Blood Pressure 136/66 01/27/24 19:39 Pulse Oximetry 100 01/27/24 19:39 Oxygen Delivery Method Room Air 01/27/24 19:39 Medical Decision Making MDM Narrative Medical decision making narrative: The patient feels much better now and is able to be discharged home. Her workup is negative. Treatment diagnosis and follow-up were discussed with the patient and her mother. Differential Diagnosis Differential Diagnosis: Headache, anxiety Lab Data Lab results reviewed: Yes I reviewed the patient's lab results Labs: Lab Results 01/27/24 Range/Units 19:55 WBC 11.3 H (4.0-11.0) 10^3/uL RBC 3.36 L (4.20-5.40) 10^6/uL Hgb 10.6 L (12.0-16.0) g/dL Hct 30.8 L (36.0-48.0) % MCV 91.7 (81.0-99.0) fL MCH 31.5 (26.7-34.0) pg MCHC 34.4 (29.9-35.2) g/dL RDW 13.1 (11.0-15.0) % Plt Count 377 (150-450) 10^3/uL MPV 9.8 (9.5-13.5) fL Neut % (Auto) 69.1 (43.0-75.0) % Lymph % (Auto) 18.9 L (20.5-60.0) % [place] % (Auto) 6.3 (1.7-12.0) % Eos % (Auto) 4.7 (0.9-7.0) % Baso % (Auto) 0.5 (0.2-2.0) % Neut # (Auto) 7.8 H (1.4-6.5) 10^3/uL Lymph # (Auto) 2.1 (1.2-3.8) 10^3/uL [place] # (Auto) 0.7 (0.3-0.8) 10^3/uL Eos # (Auto) 0.5 (0.0-0.7) 10^3/uL Baso # (Auto) 0.1 (0.0-0.1) 10^3/uL Abs Immat Gran (auto) 0.06 H (0.00-0.03) 10^3/uL Imm/Tot Granulo (auto) 0.5 (0.0-0.5) % Sodium 137 (136-145) mmol/L Potassium 3.6 (3.5-5.1) mmol/L Chloride 103 (98-107) mmol/L Carbon Dioxide 25.7 (21.0-32.0) mmol/L Anion Gap 11.9 BUN 9.0 (7.0-18.0) mg/dL Creatinine 0.70 (0.55-1.02) mg/dL Est GFR ( Amer) >60 (>=60) Est GFR (Non-Af Amer) >60 (>=60) BUN/Creatinine Ratio 12.9 Glucose 92 (74-106) mg/dL Calcium 8.9 (8.5-10.1) mg/dL Serum HCG, Qual Negative (NEGATIVE) Discharge Plan Discharge Stand Alone Forms: Portal Instructions Chief Complaint: Headache Clinical Impression: Headache Patient Disposition: Home, Self-Care Time of Disposition Decision: 21:19 Condition: Good Mode of Transportation: Private Vehicle Prescriptions / Home Meds: No Action doxepin 10 mg capsule 10 mg PO DAILY triamcinolone acetonide 0.1 % cream TOPICAL cholecalciferol (vitamin D3) 1,250 mcg (50,000 unit) capsule Zyrtec 10 mg capsule 10 mg PO DAILY levothyroxine [Euthyrox] 200 mcg tablet 200 mcg PO DAILY Dulera 50-5 mcg/actuation HFA aerosol inhaler 2 inh inhalation QID cyclobenzaprine 5 mg tablet 5 mg PO TID PRN (Reason: muscle spasm) Qty: 10 0RF Print Language: Citizen [place] Instructions: Acute Headache (ED) Referrals: RITIKA DOBSON [Primary Care Provider] - 1 week
[2024-01-27 20:04] LABS: Basophils Absolute Auto 0.1 10^3/uL (0.0-0.1); Basophils Percent Auto 0.5 % (0.2-2.0); Eosinophils Absolute Auto 0.5 10^3/uL (0.0-0.7); Eosinophils Percent Auto 4.7 % (0.9-7.0); Hematocrit 30.8 % (36.0-48.0); Hemoglobin 10.6 g/dL (12.0-16.0); Immature Granulocytes Abs Auto 0.06 10^3/uL (0.00-0.03); Immature Granulocytes Pct Auto 0.5 % (0.0-0.5); Lymphocytes Absolute Auto 2.1 10^3/uL (1.2-3.8); Lymphocytes Percent Auto 18.9 % (20.5-60.0); Mean Corpuscular HGB Conc 34.4 g/dL (29.9-35.2); Mean Corpuscular Hemoglobin 31.5 pg (26.7-34.0); Mean Corpuscular Volume 91.7 fL (81.0-99.0); Mean Platelet Volume 9.8 fL (9.5-13.5); Monocytes Absolute Auto 0.7 10^3/uL (0.3-0.8); Monocytes Percent Auto 6.3 % (1.7-12.0); Neutrophils Absolute Auto 7.8 10^3/uL (1.4-6.5); Neutrophils Percent Auto 69.1 % (43.0-75.0); Platelet Count 377 10^3/uL (150-450); Red Blood Count 3.36 10^6/uL (4.20-5.40); Red Cell Distribution Width 13.1 % (11.0-15.0); White Blood Count 11.3 10^3/uL (4.0-11.0)
[2024-01-27 20:13] LABS: Anion Gap 11.9; BUN Creatinine Ratio 12.9; Calcium 8.9 mg/dL (8.5-10.1); Carbon Dioxide 25.7 mmol/L (21.0-32.0); Chloride 103 mmol/L (98-107); Estimated GFR (African America >60 (>=60); Estimated GFR (Non-African Ame >60 (>=60); Glucose 92 mg/dL (74-106); Potassium 3.6 mmol/L (3.5-5.1); Sodium 137 mmol/L (136-145)
[2024-01-27 20:14] LABS: HCG Qualitative NEGATIVE (NEGATIVE); Internal Control Within Normal Limits
[2024-01-27] MEDS: 0.9 % SODIUM CHLORIDE 1,000 ML 1000 ML IV (20:23)
[2024-01-27] MEDS: LORAZEPAM 2 MG/ML VIAL 0.5 MG IV (20:23)
[2024-01-27] MEDS: ONDANSETRON PF 4 MG/2 ML VIAL IV (20:23)
[2024-01-27] MEDS: KETOROLAC TROMETHAMINE 30 MG/ML VIAL IVP (20:24)
[2024-01-27 21:37] VITALS: BP 120/76; PULSE 98; O2SAT 100
== END 2024-01-27 21:40 | disposition home or self-care (01) ==
PROVIDERS: Emergency Provider Emergency Medicine; PCP Family Medicine
DX: R51.9 Headache, unspecified (principal); F17.210 Nicotine dependence, cigarettes, uncomplicated
CPT/HCPCS: 36415; 80048; 84703; 85025; 96361; 96374; 96375; 99284; J1885; J2060; J2405

== ENCOUNTER 2024-10-12 18:41 | Emergency (ER) | payer OTHER, SELFPAY ==
[2024-10-12] VITALS (27 sets, daily range): BP systolic 110–129; BP diastolic 61–87; PULSE 65–96; TEMP 36.8; O2SAT 95–99; BMI 25.8
[2024-10-12] MEDS: 0.9 % SODIUM CHLORIDE 1,000 ML 999 ML IV (19:55)
[2024-10-12] MEDS: FENTANYL CITRATE/PF 100 MCG/2 ML VIAL 50 MCG IV (19:56)
[2024-10-12] MEDS: ONDANSETRON PF 4 MG/2 ML VIAL IV (19:56)
[2024-10-12 20:00] LABS: Basophils Absolute Auto 0.1 10^3/uL (0.0-0.1); Basophils Percent Auto 0.7 % (0.2-2.0); Eosinophils Absolute Auto 0.8 10^3/uL (0.0-0.7); Eosinophils Percent Auto 8.2 % (0.9-7.0); Hematocrit 35.3 % (36.0-48.0); Immature Granulocytes Abs Auto 0.04 10^3/uL (0.00-0.03); Immature Granulocytes Pct Auto 0.4 % (0.0-0.5); Lymphocytes Absolute Auto 1.4 10^3/uL (1.2-3.8); Lymphocytes Percent Auto 14.6 % (20.5-60.0); Mean Corpuscular Volume 91.2 fL (81.0-99.0); Mean Platelet Volume 9.5 fL (9.5-13.5); Monocytes Absolute Auto 0.7 10^3/uL (0.3-0.8); Monocytes Percent Auto 7.2 % (1.7-12.0); Neutrophils Absolute Auto 6.6 10^3/uL (1.4-6.5); Neutrophils Percent Auto 68.9 % (43.0-75.0); Platelet Count 365 10^3/uL (150-450); Red Blood Count 3.87 10^6/uL (4.20-5.40); Red Cell Distribution Width 13.8 % (11.0-15.0); White Blood Count 9.6 10^3/uL (4.0-11.0)
--- NOTE | 2024-10-12 20:01 | ECG_ITS ---
[facility] Test Date: 2024-10-12 Pat Name: TRUDY TUBBS Department: Room: - Gender: Female [employer]apons [employer]: : 2000 Requested By: [id number] Order Number: [id number] Reading MD: FILOMENA COLON M.D. Measurements Intervals [place] Rate: 74 P: 79 MO: 158 QRS: 84 QRSD: 72 T: 79 QT: 384 QTc: 411 Interpretive Statements 1100 Sinus rhythm 9110 normal ECG No previous ECG available for comparison Electronically Signed On 10-12-2024 20:31:11 EDT by FILOMENA COLON M.D.
[2024-10-12 20:18] LABS: Alanine Aminotransferase 22 U/L (14-59); Albumin Level 3.4 g/dL (3.4-5.0); Alkaline Phosphatase 88 U/L (46-116); Anion Gap 12.4; Aspartate Amino Transferase 12 U/L (15-37); BUN Creatinine Ratio 11.5; Bilirubin Total 0.2 mg/dL (0.2-1.0); Carbon Dioxide 27.5 mmol/L (21.0-32.0); Chloride 106 mmol/L (98-107); Estimated GFR (African America >60 (>=60 mL/min/1.73m^2); Estimated GFR (Non-African Ame >60 (>=60 mL/min/1.73m^2); Globulin 3.4 g/dL; Glucose 100 mg/dL (74-106); Potassium 3.9 mmol/L (3.5-5.1); Sodium 142 mmol/L (136-145); Total Protein 6.8 g/dL (6.4-8.2); Troponin I High Sensitivity <4.0 pg/mL (4.0-51.3)
--- NOTE | 2024-10-12 20:20 | ED.ABDPAIN1 ---
HPI - Abdominal Pain General Chief Complaint: Abdominal Pain Stated Complaint: Abdominal Pain Time Seen by Provider: 10/12/24 19:37 Source: patient Mode of arrival: walk-in History of Present Illness HPI narrative: patient presents complaining of lower abdominal pain and syncope. States she passed out about 4 times. Describes experiencing mid lower abdominal pain that would increase and then she would pass out. family states unconscious for about 2 minutes and then wakes back and is her usual self. This has occurred 4 times today. never pain free but pain varies and can become intense. Currently pain 7/10 and she feels nauseated. Does have past history of fainting but only occurred once and her mother states she was informed it was because of dehydration. No headache, fever , chest pain or palptations. Related Data Home Medications ?Medication ?Instructions ?Recorded ?Confirmed levothyroxine 200 mcg tablet 200 mcg PO DAILY 01/13/23 10/12/24 (Euthyrox) mometasone-formoterol HFA 50 mcg-5 2 inh inhalation QID 01/13/23 10/12/24 mcg/actuation aerosol inhaler (Dulera) cetirizine 10 mg capsule (Zyrtec) 10 mg PO DAILY 01/27/24 10/12/24 triamcinolone acetonide 0.1 % 1 applic topical DAILY 01/27/24 10/12/24 topical cream Allergies Allergy/AdvReac Type Severity Reaction Status Date / Time No Known Drug Allergies Allergy Verified 02/27/23 08:08 Review of Systems ROS Status of ROS 10 or more systems reviewed and unremarkable except as noted in history and below [facility] Social History (System 02/27/23 @ 08:08 by Alicia Mckeon) Smoking status: Current some day smoker Little interest or pleasure in doing things: not at all Feeling down, depressed, or hopeless: not at all Exam Constitutional Vital Signs, click to edit/add: Last Vital Signs Temp 98.2 F 10/12/24 18:47 Pulse 78 10/12/24 23:10 Resp 18 10/12/24 23:07 BP 110/76 10/12/24 23:10 Pulse Ox 97 10/12/24 23:07 Common normals: no apparent distress, average body habitus, oriented x3, no limitations, healthy appearing and well nourished [facility] Common normals: normocephalic and head/scalp atraumatic Eye Common normals: PERRL, EOMs intact bilaterally, conjunctivae normal and no scleral icterus Respiratory Common normals: normal respiratory effort, no retractions, no use of accessory muscles and clear to auscultation bilaterally Cardio Common normals: regular rate, regular rhythm, S1 normal heart sound and S2 normal heart sound GI Other: moderate tenderness lower abdomen. Extremity Common normals: normal to inspection and full ROM Neuro Common normals: oriented x3, CN's II-XII intact bilaterally, moves all extremities and no focal motor deficits Psych Appearance: grossly normal Course Course Hospital Course: I did not participate in the care of this patient. Vital Signs Vital signs: Vital Signs Temperature 98.2 F 10/12/24 18:47 Pulse Rate 90 10/12/24 18:47 Respiratory Rate 18 10/12/24 18:47 Blood Pressure 128/85 10/12/24 18:47 Pulse Oximetry 98 10/12/24 18:47 Temperature 98.2 F 10/12/24 18:47 Pulse Rate 78 10/12/24 23:10 Respiratory Rate 18 10/12/24 23:07 Blood Pressure 110/76 10/12/24 23:10 Pulse Oximetry 97 10/12/24 23:07 MDM - Abdominal Pain MDM Narrative Medical decision making narrative: patient has past history of syncope but not for several years. Reportedly she passed out 4 times today. Describes abdominal pain that would increase and then she would pass out. Wakes up back to her normal self. No seizure like activity. On exam found to have lower quad tenderness. CT of abd/pelvis neg. Labs unremarkable as well. EKG normal . Orthostatics normal and patient is feeling better. discharged with instructions for close follow up and to keep hydrated Lab Data Labs: Lab Results 10/12/24 10/12/24 Range/Units 19:50 20:07 WBC 9.6 (4.0-11.0) 10^3/uL RBC 3.87 L (4.20-5.40) 10^6/uL Hgb 12.0 (12.0-16.0) g/dL Hct 35.3 L (36.0-48.0) % MCV 91.2 (81.0-99.0) fL MCH 31.0 (26.7-34.0) pg MCHC 34.0 (29.9-35.2) g/dL RDW 13.8 (11.0-15.0) % Plt Count 365 (150-450) 10^3/uL MPV 9.5 (9.5-13.5) fL Neut % (Auto) 68.9 (43.0-75.0) % Lymph % (Auto) 14.6 L (20.5-60.0) % [place] % (Auto) 7.2 (1.7-12.0) % Eos % (Auto) 8.2 H (0.9-7.0) % Baso % (Auto) 0.7 (0.2-2.0) % Neut # (Auto) 6.6 H (1.4-6.5) 10^3/uL Lymph # (Auto) 1.4 (1.2-3.8) 10^3/uL [place] # (Auto) 0.7 (0.3-0.8) 10^3/uL Eos # (Auto) 0.8 H (0.0-0.7) 10^3/uL Baso # (Auto) 0.1 (0.0-0.1) 10^3/uL Abs Immat Gran (auto) 0.04 H (0.00-0.03) 10^3/uL Imm/Tot Granulo (auto) 0.4 (0.0-0.5) % Sodium 142 (136-145) mmol/L Potassium 3.9 (3.5-5.1) mmol/L Chloride 106 (98-107) mmol/L Carbon Dioxide 27.5 (21.0-32.0) mmol/L Anion Gap 12.4 BUN 9.0 (7.0-18.0) mg/dL Creatinine 0.78 (0.55-1.02) mg/dL Est GFR ( Amer) >60 (>=60 mL/min/1.73m^2) Est GFR (Non-Af Amer) >60 (>=60 mL/min/1.73m^2) BUN/Creatinine Ratio 11.5 Glucose 100 (74-106) mg/dL Lactate 0.6 (0.4-2.0) mmol/L Calcium 9.0 (8.5-10.1) mg/dL Total Bilirubin 0.2 (0.2-1.0) mg/dL AST 12 L (15-37) U/L ALT 22 (14-59) U/L Alkaline Phosphatase 88 (46-116) U/L Troponin I High Sens <4.0 L (4.0-51.3) pg/mL Total Protein 6.8 (6.4-8.2) g/dL Albumin 3.4 (3.4-5.0) g/dL Globulin 3.4 g/dL Albumin/Globulin Ratio 1.0 Lipase 24.0 (16.0-77.0) U/L Urine Color Lt. yellow (YELLOW) Urine Clarity Clear (CLEAR) Urine pH 6.5 (5.0-9.0) Ur Specific Check 1.010 (1.005-1.025) Urine Protein Negative (NEG/TRACE) mg/dL Urine Glucose (UA) Negative (NEGATIVE) mg/dL Urine Ketones Negative (NEGATIVE) mg/dL Urine Occult Blood Small A (NEGATIVE) Urine Nitrite Negative (NEGATIVE) Urine Bilirubin Negative (NEGATIVE) Urine Urobilinogen 0.2 (0.2-1.0) EU/dL Ur Leukocyte Esterase Negative (NEGATIVE) Urine RBC 0-2 (0-2) #/HPF Urine WBC None seen (NONE SEEN) #/HPF Ur Squamous Epith Cells None seen (NONE/RARE) #/LPF Urine Crystals Seen A (None Seen) #/HPF Amorphous Sediment Rare Urine Bacteria None seen (NONE SEEN) #/HPF Urine Casts None seen (NONE SEEN) #/LPF Urine Mucus None seen (NONE SEEN) Ur Culture Indicated? No Discharge Plan Discharge Chief Complaint: Abdominal Pain Clinical Impression: Fainting episodes, Abdominal pain Patient Disposition: Home, Self-Care Prescriptions / Home Meds: No Action triamcinolone acetonide 0.1 % cream 1 applic TOPICAL DAILY Zyrtec 10 mg capsule 10 mg PO DAILY levothyroxine [Euthyrox] 200 mcg tablet 200 mcg PO DAILY Dulera 50-5 mcg/actuation HFA aerosol inhaler 2 inh inhalation QID Print Language: Citizen [place] Instructions: Syncope (ED), Abdominal Pain (ED) Additional Instructions: drink plenty of fluids and follow up with family doctor tomorrow for recheck Referrals: RITIKA DOBSON [Primary Care Provider] - 1 week Discharge Date/Time: 10/12/24 23:30
[2024-10-12 20:30] LABS: Lactate/Lactic Acid 0.6 mmol/L (0.4-2.0)
[2024-10-12 20:30] LABS: Bilirubin Urine NEGATIVE (NEGATIVE); Blood Urine SMALL (NEGATIVE); Clarity Urine CLEAR (CLEAR); Color Urine LT. YELLOW (YELLOW); Glucose Urine UA NEGATIVE (NEGATIVE); Ketones Urine NEGATIVE (NEGATIVE); Leukocyte Esterase Urine NEGATIVE (NEGATIVE); Nitrite Urine NEGATIVE (NEGATIVE); Protein Urine NEGATIVE (NEG/TRACE); Urine Microscopic Indicated YES; Urobilinogen Urine 0.2 EU/dL (0.2-1.0); pH Urine 6.5 (5.0-9.0)
[2024-10-12 20:35] LABS: Bacteria Urine NONE SEEN #/HPF (NONE SEEN); Crystals Seen? Seen #/HPF (None Seen); Mucus Urine NONE SEEN (NONE SEEN); RBC Urine 0-2 #/HPF (0-2); Squamous Epithelial Cell Urine NONE SEEN #/LPF (NONE/RARE); WBC Urine NONE SEEN #/HPF (NONE SEEN)
[2024-10-12 20:36] LABS: Amorphous Sediment Urine RARE; Cast Seen? NONE SEEN #/LPF (NONE SEEN); Urine Culture Indicated NO
== END 2024-10-12 23:30 | disposition home or self-care (01) ==
PROVIDERS: Internal Medicine; Emergency Provider Emergency Medicine; PCP Family Medicine
DX: R10.30 Lower abdominal pain, unspecified (principal); R55 Syncope and collapse; F17.200 Nicotine dependence, unspecified, uncomplicated
CPT/HCPCS: 36415; 71045; 74177; 80053; 81001; 83605; 83690; 84484; 85025; 93005; 96361; 96374; 96375; 99285; J2405; J3010; Q9967